=== PATIENT | male | born 1980 | race Caucasian/White ===

== ENCOUNTER 2019-12-07 07:55 | Day surgery (SDC) | payer OTHER, SELFPAY ==
[2019-10-07 14:07] VITALS: BMI 27.2
[2019-12-07] VITALS (8 sets, daily range): BP systolic 96–119; BP diastolic 61–79; PULSE 58–66; RESP 16–18; TEMP 36.3–36.4; O2SAT 97–99; BMI 29.8
--- NOTE | 2019-12-07 | GASB_PTH ---
PATIENT: ANAND GREGORY LOC: EN U#:[id number] AGE/SX: 39/M ROOM: RE12/07/[address]: Dr. Finesse Kramer MD : 1980 BED: DIS: 12/07/2019 SPEC #: [id number] RECD: 12/07/19 13:04 STATUS: AURELIA ASYA #: [id number] PARMJIT: 12/07/19 00:[address]: Finesse Kramer DEPT: SURGICAL PATHOLOGY RECD BY: Felipe Valdez ENTERED: 12/08/19 10:12 SP TYPE: Gastric Bx OTHR DR: Dr. Jessica Lozano, Tissues: Gastric mucous membrane Procedures: Surgery Specimen Level IV HEADER OPERATION: [place] PRE-OP DIAGNOSIS: Dysphagia TISSUE SUBMITTED: Antrum biopsy for histo and H. pylori MICROSCOPIC DIAGNOSIS Antrum biopsy: A fragment of gastric mucosa with minimal chronic inflammation. See comment. SJ:kimberly 12/09/19 COMMENT The results of immunohistochemistry for Helicobacter pylori will be reported separately ([id number]). MICROSCOPIC DESCRIPTION Slides are reviewed. GROSS DESCRIPTION Received in fixative is one container labeled with the patient's name and designated antrum biopsy. The specimen consists of one irregular fragment of light foreman soft tissue that measures 0.7 x 0.2 x 0.1 cm. The specimen is totally submitted in one cassette. / SJ:kimberly 12/08/19 TC:3 CPT: 62402
[2019-12-07] MEDS: Lactated Ringers 1,000 ML 100 ML IV (08:20)
--- NOTE | 2019-12-07 08:28 | PCM.HP.BLA ---
History and Physical Date of Admission: 12/07/19 [facility] [address] [place], [place] [address] MR#: [id number] Acct: [id number] Name: ANAND GREGORY Rep #: [id number] : 1980 Provider: Finesse Kramer MD Age/Sex: 39/M Location: [facility] Status: Signed Intake Vital Signs 10/07/19 Height 6 ft 2 in 10/07/19 Weight: 212 lb 10/07/19 BMI 27.2 10/07/19 BP 125/80 H 10/07/19 Blood Pressure Location Rt brachial 10/07/19 Position Sitting 10/07/19 Respiration 18 10/07/19 Pulse 79 10/07/19 Pulse Source Monitor 10/07/19 Temp 98.9 F 10/07/19 Temp Source Oral 10/07/19 Pulse Oximetry (%) 97 10/07/19 Oxygen Delivery Method room air Intake Visit Reasons: Consult EGD Chief Complaint: dysphagia 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 Finesse Kramer MD) Smoking Status: Never smoker alcohol intake: current substance use type: does not use HPI HPI HPI: ANAND GREGORY, is a 39 M who presents to the office today for Evaluation for endoscopy. Patient has a longstanding history of dysphasia and reflux. Approximately 7 to 8 years ago he underwent a barium swallow which showed esophagitis. He has been having problems with dysphasia and things getting stuck in his upper esophagus for about 8 years. He has had a history of EGD with dilatation with minimal effects. He will occasionally have waterbrash symptoms but not very often. ROS General General: No weight change, appetite, fatigue, colon cancer, breast cancer or weakness HEENT HEENT: Yes difficulty swallowing; no eye injury, eye surgery, swollen glands or hoarseness Endo Endocrine: No thyroid disease, diabetes mellitus, thyroid cancer, Hair loss, heat intolerance or cold intolerance Skin Skin: No rash or changing moles Breast Breast: No left breast lump, right breast lump, nipple discharge, breast pain, abnormal mammogram, abnormal US or breast enlargement Musc Musculoskeletal: No back problems, arthritis, rheumatoid arthritis, gout or joint pain Cardio Cardiovascular: No murmur, pacemaker, heart disease, atrial fibrillation, high blood pressure, heart attack, heart stent, palpitations, shortness of breat with exertion or chest pain Psych Psychiatric: No depression, anxiety or hearing voices Resp Respiratory: No shortness of breath, No sleep apnea, No cough, No COPD, No asthma, No emphysema, No wheezing Gastro Gastrointestinal: No abdominal pain, No nausea or vomiting, No diarrhea, No constipation, No blood in stool, No acid reflux, No hemorrhoids, No ulcers, No gallbladder problem, No black,tarry stools Teodoro Hematologic: No blood thinners, No blood disorders, No bleeding, No anemia, No blood clots Neuro Neurologic: No system reviewed and no additional complaints, except as docu, No as per HPI, No abnormal walking, No abnormal hearing, No abnormal movements, No abnormal speech, No behavioral changes, No burning sensations, No confusion, No seizure-like activity, No unsteadiness, No dizziness, No localized weakness, No frequent falls, No headache(s), No lack of coordination, No loss of vision, No memory loss, No numbness, No other visual disturbances, No radiating pain, No restless legs, No sensory deficit, No fainting, No tingling, No tremor(s), No weakness, No other Exam Const General: no acute distress, well developed, well hydrated Orientation: oriented to person, oriented to place, oriented to time [facility] Head: normocephalic, atraumatic Ears: external ears normal Mouth: moist mucous membranes Eyes Sclera: sclerae normal Pupils: normal by confrontation Neck Neck: no lymphadenopathy noted Neck mass: No Thyroid: thyroid normal, symmetrical Chest Chest palpation & inspection: normal inspection of the chest Breast Palpation: No nipple discharge Resp Effort & Inspection: normal respiratory effort Auscultation: clear to auscultation bilaterally Percussion: percussion normal Cardio Rate: regular rate Rhythm: regular rhythm Heart Sounds: no murmurs GI Palpation: soft, no hepatosplenomegaly, no masses, nontender Rectal Exam: other Other: Rectal exam deferred. Extrem General: normal to inspection, no clubbing, cyanosis or edema Assessment & Plan Problems 1. Pharyngoesophageal dysphagia R13.14 Plan I have discussed the above with the patient. I have offered the patient esophagogastroduodenoscopy With possible dilatation for evaluation. I have explained the risks/benefits of the procedure and described the procedure. I have discussed the risks with the patient, including but not limited to: infection, bleeding, perforation of the GI tract requiring emergency surgery, inability to complete the procedure, injury to any internal organs, complications of anesthesia, etc. - the patient understands and agrees to proceed. I have answered all the patient's questions to the patient's satisfaction and the patient has no further questions. The patient has been given instructions for the colon cleansing preparation. Orders Orders: EGD 10/07/19 Coding Level of Care Code Off vis,new,level 3 Diagnoses Pharyngoesophageal dysphagia R13.14 ??Dysphagia type: pharyngoesophageal phase <Electronically signed by Finesse Kramer MD> Date Finesse Kramer MD I have re-examined the patient. There are no clinical changes since date of exam.
--- NOTE | 2019-12-07 08:45 | IMM_PTH ---
PATIENT: ANAND GREGORY LOC: EN U#:[id number] AGE/SX: 39/M ROOM: RE12/07/[address]: Dr. Finesse Kramer MD : 1980 BED: DIS: 12/07/2019 SPEC #: [id number] RECD: 12/08/19 10:23 STATUS: AURELIA REQ #: [id number] PARMJIT: 12/07/19 08:[address]: Finesse Kramer DEPT: IMMUNOHISTOCHEMISTRY RECD BY: Joanne Montero ENTERED: 12/08/19 10:25 SP TYPE: IMMUNO OTHR DR: Dr. Jessica Lozano DO Tissues: Stomach, NOS Procedures: H Pylori (initial) PHYSICIAN & INSTITUTION [place] [id number] SPECIMEN INFORMATION: Tissue Source: Antrum biopsy Clinical Info: Dysphagia Specimen Number: [id number] CPT code: 10177 METHODOLOGY: Deparaffinized sections of prefer/formalin-fixed tissue or PAP/DQ stained slides are incubated with monoclonal/polyclonal antibodies/oligonucleotide probes. Localization is made via biotin free immunoperoxidase method. Appropriate controls are performed and reacted as expected. Results on target cell population are indicated in the following table: RESULTS: ANTIBODY / CLONE RESULT H Pylori (polyclonal) negative These tests were developed and their performance characteristics determined by [facility]. They may not have been cleared or approved by the U.S. Food and Drug Administration. The FDA has determined that such clearance or approval is not necessary. INTERPRETATION: Antrum biopsy: Negative for Helicobacter pylori organisms. NADIA:kimberly 12/09/19
--- NOTE | 2019-12-07 09:03 | OP.CCLET_ITS ---
12/07/2019 Jessica Lozano Re : Upper GI endoscopy procedure for Eleuterio Kay Dear Blake This procedure was performed on Saturday, December 07, 2019. My impressions and recommendations are as follows: Impressions : - Normal esophagus. - Z-line regular, 44 cm from the incisors. No specimens collected. - Normal stomach. Biopsied. - Normal examined duodenum. No specimens collected. Recommendations : - Discharge patient to home. - Resume previous diet. - Continue present medications. - Await pathology results. - Repeat upper endoscopy (date not yet determined) for surveillance. - Return to my office in 1 week. My findings are described in the full procedure note, which is enclosed. If I can be of further assistance, please feel free to contact me at Doctor phone number(s): , Fax: [phone], Work: . Sincerely, MD Finesse Lees MD 12/07/2019 9:02:38 AM This report has been signed electronically.
--- NOTE | 2019-12-07 09:03 | OP.EGD_ITS ---
Patient Name: Eleuterio Kay Procedure Date: 12/07/2019 8:42 AM Date of : 1980 Age: 39 Procedure: Upper GI endoscopy Indications: Esophageal dysphagia Providers: Finesse Kramer MD Referring MD: Finesse Kramer MD Medicines: See the Anesthesia note for documentation of the administered medications Patient Profile: This is a 39 year old male. Refer to note in patient chart for documentation of history and physical. Complications: No immediate complications. Procedure: Pre-Anesthesia Assessment: - Prior to the procedure, a History and Physical was performed, and patient medications and allergies were reviewed. The patient's tolerance of previous anesthesia was also reviewed. The risks and benefits of the procedure and the sedation options and risks were discussed with the patient. All questions were answered, and informed consent was obtained. Prior Anticoagulants: The patient has taken no previous anticoagulant or antiplatelet agents. ASA Grade Assessment: II - A patient with mild systemic disease. After reviewing the risks and benefits, the patient was deemed in satisfactory condition to undergo the procedure. After obtaining informed consent, the endoscope was passed under direct vision. Throughout the procedure, the patient's blood pressure, pulse, and oxygen saturations were monitored continuously. The gastroscope was introduced through the mouth, and advanced to the second part of duodenum. The upper GI endoscopy was accomplished without difficulty. The patient tolerated the procedure well. Scope In: 8:54:43 AM Scope Out: 8:57:28 AM Total Procedure Duration Time 0 hours 2 minutes 45 seconds Findings: The examined esophagus was normal. There was no abnormality seen in the upper esophagus or mid esophagus or distal esophagus. The mucosa all look normal. There was no pressure on the esophagus. The Z-line was regular and was found 44 cm from the incisors. No biopsies or other specimens were collected for this exam. The entire examined stomach was normal. Biopsies were taken with a cold forceps for Helicobacter pylori testing. The examined duodenum was normal. No biopsies or other specimens were collected for this exam. Impression: - Normal esophagus. - Z-line regular, 44 cm from the incisors. No specimens collected. - Normal stomach. Biopsied. - Normal examined duodenum. No specimens collected. Recommendation: - Discharge patient to home. - Resume previous diet. - Continue present medications. - Await pathology results. - Repeat upper endoscopy (date not yet determined) for surveillance. - Return to my office in 1 week. Procedure Code(s): --- Professional --- 38617, Esophagogastroduodenoscopy, flexible, transoral; with biopsy, single or multiple Diagnosis Code(s): --- Professional --- R13.14, Dysphagia, pharyngoesophageal phase CPT copyright 2017 [employer]. All rights reserved. The codes documented in this report are preliminary and upon product demonstrator review may be revised to meet current compliance requirements. MD Finesse Lees MD 12/07/2019 9:02:38 AM This report has been signed electronically. Number of Addenda: 0 Note Initiated On: 12/07/2019 8:42 AM
== END 2019-12-07 09:57 | disposition home or self-care (01) ==
LOC: EN 07:56 → AC 07:57
PROVIDERS: Referring Provider Surgery; Visit Provider Surgery
PROC: 0DJ08ZZ Inspection of Upper Intestinal Tract, Via Natural or Artificial Opening Endoscopic (ICD-10-PCS; CPT 43235; principal; 2019-12-07 08:40)
DX: K21.9 Gastro-esophageal reflux disease without esophagitis (principal)
CPT/HCPCS: 43239; 88305; 88342; J7120; J2405

== ENCOUNTER → 2020-08-15 12:22 | Outpatient (CLI) | payer OTHER, SELFPAY ==
[2020-08-03 15:41] VITALS: BMI 30.1
[2020-08-15 15:14] LABS: Absolute Lymphocyte Count 1.51 X10^3/uL (0.83-4.51); Absolute Neutrophil Count 2.5 X10^3/uL (2.0-7.7); Basophil# 0.04 X10^3/uL; Basophil% 0.9 % (0-1); Eosinophil# 0.06 X10^3/uL; Eosinophils% 1.3 % (0-5); Hematocrit 43.9 % (40-54); Hemoglobin 15.8 g/dL (13.0-16.5); Lymphocyte # 1.51 X10^3/ul (4.0); Lymphocyte % 33.9 % (19-41); Mean Corpuscular Hgb 31.4 pg (27.0-32.0); Mean Corpuscular Volume 87.3 fL (80-94); Monocyte# 0.31 X10^3/uL; NRBC Flagged by Analyzer 0 % (0-5); Neutrophil # 2.52 X10^3/uL (2.7-7.7); Neutrophil % 56.7 % (47-70); Platelet Count 313 K/mm3 (150-450); RBC Distribution Width CV 11.2 % (11.6-14.6); RBC Distribution Width SD 35.8 fl (35.1-43.9); Red Blood Count 5.03 M/mm3 (4.6-6.2); White Blood Count 4.5 K/mm3 (4.4-11.0)
[2020-08-15 15:31] LABS: ALB/GLOB Ratio 1.1 RATIO (0.9-2.4); AST(SGOT) 23 U/L (15-37); Alanine Aminotransfer ALT/SGPT 49 U/L (16-61); Albumin, Serum 4.3 g/dL (3.2-5.0); Alkaline Phosphatase 70 U/L (45-117); Anion Gap 6 (5-15); BUN 12 mg/dL (7-18); BUN/Creat Ratio 11.9 RATIO (10-20); Calcium,Total 9.4 mg/dL (8.5-10.1); Chloride 105 mmol/L (98-107); Cholesterol 215 mg/dL (200); Creatinine, Serum 1.01 mg/dL (0.70-1.30); EST Glomerular Filtration Rate 87 mL/min (>60); Est Glom Filt Rate - Afr Amer 105 mL/min (>60); Globulin 3.9 g/dL (2.2-4.2); Glucose 84 mg/dL (74-106); High Density Lipoprotein 60 mg/dL; PSA,Total - Annual Screen 0.59 ng/mL (0.00-4.00); Protein, Total 8.2 g/dL (6.4-8.2); Sodium Level 138 mmol/L (136-145); Triglycerides 97 mg/dL; Very Low Density Lipoprotein 19 mg/dL (5-40)
== END ==
PROVIDERS: PCP Internal Medicine; Referring Provider Internal Medicine; Visit Provider Internal Medicine
DX: Z12.5 Encounter for screening for malignant neoplasm of prostate (principal); Z13.1 Encounter for screening for diabetes mellitus; Z13.220 Encounter for screening for lipoid disorders
CPT/HCPCS: 36415; 80053; 80061; 84153; 85025; G0103

== ENCOUNTER → 2020-08-17 | Outpatient (CLI) | payer OTHER, SELFPAY ==
[2020-08-03 15:41] VITALS: BMI 30.1
== END | disposition home or self-care (01) ==
LOC: LABSPEC 16:47
PROVIDERS: PCP Internal Medicine; Visit Provider Surgery
DX: R14.0 Abdominal distension (gaseous) (principal); R19.7 Diarrhea, unspecified
CPT/HCPCS: 82274; 83630; 87177; 87209; 87506

== ENCOUNTER 2020-08-24 08:46 | Day surgery (SDC) | payer OTHER, SELFPAY ==
[2020-08-03 15:41] VITALS: BMI 30.1
[2020-08-24 09:09] VITALS: BP 118/77; PULSE 73; RESP 16; TEMP 36.2; O2SAT 99; BMI 30.4
--- NOTE | 2020-08-24 09:12 | HP.PCM_ITS ---
History and Physical Date of Admission: 08/24/20 [facility] [address] [place] [address] OFFICE VISIT Date of Service: 08/15/20 MR#: [id number] Acct: [id number] Patient: ANAND GREGORY Rep #: [id number] : 1980 Provider: Dr. 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 Finesse Kramer MD) Smoking Status: Never smoker alcohol intake: current substance use type: does not use HPI HPI Chief Complaint: c-scope/stomach issues Details: Patient was informed that this visit will be billed to patient. This visit was conducted during COVID-19 pandemic. ANAND GREGORY, is a 40 M who presents For a telephone visit. I have seen him in the past for reflux symptoms. He did have EGD on a couple of occasions in the past. Most recent EGD, completed at [facility], was largely unremarkable. His H. pylori testing was negative. Recently, he developed a GI illness that included a couple of days of more diarrheal symptoms, which have mostly resolved. This developed just a few days after returning from a trip to [place] little over a month ago. Admittedly, had quite a bit of alcohol during the entire time he was there. They were in a resort-like environment. He was pretty careful about drinking bottled water except for a single occasion, when he inadvertently drank tap water. His spouse was not ill. He developed symptoms upon returning as above. Currently, he states while bowel movements have improved, he still has a sense of bloating at times, intermittent loose stool but not frankly diarrhea. Has not mentioned foul-smelling. He notes no blood in the stool, black stool. He really had no nausea symptoms or vomiting associated with this, and there were no fever or chills associated nor significant abdominal cramping. He did recall some mild cramping right at the onset, that rapidly cleared after he had the first bowel movement. Recently, he started on a 5-day course of Cipro 500 mg oral twice daily. I believe he has a couple of more days left he states. Not sure yet if this has improved things. Today he has not had any stool studies. ROS Const Constitutional: No body ache, chills, excessive sweating, fatigue, fever(s), headache(s), snoring, weakness, weight change, sleep problems, change in appetite or other Eyes Eyes: No blurry vision, change in vision, eye pain, light sensitivity or other ENT ENT: No abnormal hearing, ear pain, tinnitus, nasal congestion, headache(s), neck pain, sore throat or other Resp Respiratory: No cough, shortness of breath, snoring, wheezing or other Cardio Cardiology: No chest pain at rest, chest pain with exertion, excessive sweating, shortness of breath, lightheadedness, orthopnea, palpitations or other Gastro GI: Positive for abdominal pain, belching, bloating and diarrhea Genitourinary Male: No burning urination, painful urination, urinary incontinence, urinary frequency, urinary urgency, testicle pain or other Musc Musculoskeletal: No abnormal walking, joint pain, back pain, limited range of motion, neck pain, numbness, tingling or other Skin Skin: No dry skin, redness, lesions, itching, rash, wounds or other Breast Breast: No other Neuro Neurology: No abnormal walking, abnormal hearing, abnormal speech, dizziness, weakness, headache(s), memory loss, numbness, tingling or other Psych Psychiatric: No anxiety, No change in appetite, No depression, No memory loss, No Thoughts of harming yourself/Others, No other Endo Endocrine: No cold intolerance, excessive sweating, fatigue, flushing, heat intolerance, increased thirst/drinking, increased hunger or other Aller/Imm Allergy/Immunologic: No itchy eyes, seasonal allergy symptoms, hives, wheezing or other Teodoro/Lymp Hematologic/Lymphatic: No easy bleeding, easy bruising, enlarged lymph nodes or other Exam Details: Details:: Abdomen is soft and nontender. Quality Reporting Tobacco Screening ([facility] 138) Smoking Status: Never smoker Assessment & Plan Problems 1. Abdominal bloating R14.0 2. Diarrhea, unspecified type R19.7 Plan I have discussed the above with the patient. I have offered the patient colonoscopy for evaluation. I have explained the risks/benefits of the procedure and described the procedure. I have discussed the risks with the patient, including but not limited to: infection, bleeding, perforation of the GI tract requiring emergency surgery, inability to complete the procedure, injury to any internal organs, complications of anesthesia, etc. - the patient understands and agrees t o proceed. I have answered all the patient's questions to the patient's satisfaction and the patient has no further questions. The patient has been given instructions for the colon cleansing preparation. We will obtain stool studies on him. We will be doing random colon biopsies. Coding Level of Care Code Level 1 Telephone Diagnoses Abdominal bloating R14.0 Diarrhea, unspecified type R19.7 ??Diarrhea type: unspecified type I have re-examined the patient. There are no clinical changes since date of exam.
[2020-08-24] MEDS: Lactated Ringers 1,000 ML 100 ML IV (09:21)
[2020-08-24] MEDS: Glucagon 1 MG/ML Syringe (09:41)
--- NOTE | 2020-08-24 09:45 | COLBX_PTH ---
PATIENT: ANAND GREGORY LOC: EN U#:[id number] AGE/SX: 40/M ROOM: RE08/24/[address]: Dr. Finesse Kramer MD : 1980 BED: DIS: 08/24/2020 SPEC #: [id number] RECD: 08/24/20 10:53 STATUS: AURELIA SKY #: [id number] PARMJIT: 08/24/20 09:[address]: Finesse Kramer DEPT: SURGICAL PATHOLOGY RECD BY: Mary Adrian ENTERED: 08/24/20 12:56 SP TYPE: COLON BX OTHR DR: Dr. Arelis Sweet MD Tissues: A - Small intestine biopsy B - COLON BIOPSY Procedures: Surgery Specimen Level IV HEADER OPERATION: Colonoscopy ([facility]) PRE-OP DIAGNOSIS: Abdominal bloating; diarrhea TISSUE SUBMITTED: A - Biopsy of small intestine, B - Random colon biopsies MICROSCOPIC DIAGNOSIS A. Small intestine, biopsy: No pathologic change. B. Colon, random biopsy: No pathologic change. AM:kimberly 08/25/2020 MICROSCOPIC DESCRIPTION Slides are reviewed. GROSS DESCRIPTION A - Received in fixative is one container labeled with the patient's name and designated biopsy of small intestine. The specimen consists of one irregular fragment of light foreman soft tissue that measures 0.5 x 0.5 x 0.1 cm. The specimen is totally submitted in one cassette. B - Received in fixative is one container labeled with the patient's name and designated random colon biopsy. The specimen consists of multiple irregular fragments of light foreman soft tissue that in aggregate measure 2.5 x 1 x 0.1 cm. The specimen is totally submitted in one cassette. / AM:kimberly 08/24/20 TC:5 CPT: 87616 x2
[2020-08-24 09:55] VITALS: BP 114/82; BP 118/77; PULSE 65; RESP 16; TEMP 36.1; O2SAT 95
[2020-08-24 10:00] VITALS: BP 114/71; BP 118/77; PULSE 70; RESP 16; O2SAT 95
[2020-08-24 10:05] VITALS: BP 117/75; BP 118/77; PULSE 66; RESP 16; O2SAT 98
[2020-08-24 10:10] VITALS: BP 116/70; BP 118/77; PULSE 65; RESP 16; TEMP 36.3; O2SAT 99
[2020-08-24 10:33] VITALS: BP 118/77
--- NOTE | 2020-08-24 13:51 | OP.CCLET_ITS ---
08/24/2020 Arelis Sweet [facility] [address] [place] [address] Re : Colonoscopy procedure for Eleuterio Kay Dear Dr. Sweet This procedure was performed on Monday, August 24, 2020. My impressions and recommendations are as follows: Impressions : - Non-bleeding internal hemorrhoids. - The entire examined colon is normal. Biopsied. - The examined portion of the ileum was normal. Biopsied. - The examination was otherwise normal. Recommendations : - Discharge patient to home. - Resume previous diet. - Continue present medications. - Await pathology results. - Repeat colonoscopy at appointment to be scheduled for screening purposes. - Telephone my office for pathology results in 1 week. My findings are described in the full procedure note, which is enclosed. If I can be of further assistance, please feel free to contact me at Doctor phone number(s): , Fax: [phone], Work: . Sincerely, MD Finesse Lees MD 08/24/2020 9:57:49 AM This report has been signed electronically.
--- NOTE | 2020-08-24 13:51 | OP.COLON_ITS ---
Patient Name: Eleuterio Kay Procedure Date: 08/24/2020 9:22 AM Date of : 1980 Age: 40 Procedure: Colonoscopy Indications: Clinically significant diarrhea of unexplained origin, Incidental abdominal distress noted Providers: Finesse Kramer MD Referring MD: Arelis Sweet Medicines: See the Anesthesia note for documentation of the administered medications Patient Profile: This is a 40 year old male. Refer to note in patient chart for documentation of history and physical. Last Colonoscopy: none. The patient's first colonoscopy is today. Complications: No immediate complications. Procedure: Pre-Anesthesia Assessment: - Prior to the procedure, a History and Physical was performed, and patient medications and allergies were reviewed. The patient's tolerance of previous anesthesia was also reviewed. The risks and benefits of the procedure and the sedation options and risks were discussed with the patient. All questions were answered, and informed consent was obtained. Prior Anticoagulants: The patient has taken no previous anticoagulant or antiplatelet agents. ASA Grade Assessment: II - A patient with mild systemic disease. After reviewing the risks and benefits, the patient was deemed in satisfactory condition to undergo the procedure. After I obtained informed consent, the scope was passed under direct vision. Throughout the procedure, the patient's blood pressure, pulse, and oxygen saturations were monitored continuously. The adult colonoscope was introduced through the anus and advanced to 3 cm into the ileum. The colonoscopy was performed without difficulty. The patient tolerated the procedure well. The quality of the bowel preparation was good. Scope In: 9:36:07 AM Scope Withdrawal Time 0 hours 6 minutes 34 seconds Scope Out: 9:51:20 AM Total Procedure Duration Time 0 hours 15 minutes 13 seconds Findings: Non-bleeding internal hemorrhoids were found during retroflexion. The hemorrhoids were mild and small. The colon (entire examined portion) appeared normal. Biopsies for histology were taken with a cold forceps from the entire colon for evaluation of microscopic colitis. The terminal ileum appeared normal. Biopsies were taken with a cold forceps for histology. The exam was otherwise without abnormality. Impression: - Non-bleeding internal hemorrhoids. - The entire examined colon is normal. Biopsied. - The examined portion of the ileum was normal. Biopsied. - The examination was otherwise normal. Recommendation: - Discharge patient to home. - Resume previous diet. - Continue present medications. - Await pathology results. - Repeat colonoscopy at appointment to be scheduled for screening purposes. - Telephone my office for pathology results in 1 week. Procedure Code(s): --- Professional --- 10243, Colonoscopy, flexible; with biopsy, single or multiple Diagnosis Code(s): --- Professional --- K64.8, Other hemorrhoids R19.7, Diarrhea, unspecified CPT copyright 2017 [employer]. All rights reserved. The codes documented in this report are preliminary and upon patcher helper review may be revised to meet current compliance requirements. MD Finesse Lees MD 08/24/2020 9:57:49 AM This report has been signed electronically. Number of Addenda: 0 Note Initiated On: 08/24/2020 9:22 AM
== END 2020-08-24 10:45 | disposition home or self-care (01) ==
LOC: EN 08:47 → AC 08:48
PROVIDERS: PCP Internal Medicine; Referring Provider Internal Medicine; Visit Provider Surgery
PROC: 0DJD8ZZ Inspection of Lower Intestinal Tract, Via Natural or Artificial Opening Endoscopic (ICD-10-PCS; CPT 45378; principal; 2020-08-24 09:40)
DX: K64.8 Other hemorrhoids (principal); K21.9 Gastro-esophageal reflux disease without esophagitis; Z20.822 Contact with and (suspected) exposure to COVID-19
CPT/HCPCS: 45380; 87426; 88305; C9803; J7120; J1610; J2405

== ENCOUNTER 2021-09-12 13:33 | Outpatient (CLI) | payer OTHER, SELFPAY ==
[2021-09-12 14:34] LABS: Erythrocyte Sedimentation Rate 4 mm/hr (0-20)
[2021-09-12 14:53] LABS: BUN 15 mg/dL (7-18); Creatinine, Serum 0.96 mg/dL (0.70-1.30); Glucose 108 mg/dL (74-106)
[2021-09-12 14:54] LABS: ALB/GLOB Ratio 1.2 RATIO (0.9-2.4); AST(SGOT) 49 U/L (15-37); Alanine Aminotransfer ALT/SGPT 67 U/L (16-61); Albumin, Serum 4.2 g/dL (3.2-5.0); Alkaline Phosphatase 66 U/L (45-117); Anion Gap 8 (5-15); BUN/Creat Ratio 15.7 RATIO (10-20); CRP < 2.90 mg/L (0.0-3.0); Calcium,Total 9.4 mg/dL (8.5-10.1); Chloride 104 mmol/L (98-107); EST Glomerular Filtration Rate 92 mL/min (>60); Est Glom Filt Rate - Afr Amer 112 mL/min (>60); Globulin 3.5 g/dL (2.2-4.2); LDH 215 U/L (87-241); Potassium 3.7 mmol/L (3.5-5.1); Protein, Total 7.7 g/dL (6.4-8.2); Sodium Level 137 mmol/L (136-145)
[2021-09-14 13:08] LABS: Anti-Centromere B Ab <0.2 AI (0.0-0.9); Anti-Chromatin <0.2 AI (0.0-0.9); Anti-Jo <0.2 AI (0.0-0.9); Anti-Scleroderma-70 AB <0.2 AI (0.0-0.9); RNP Ab 0.3 AI (0.0-0.9); SJOGREN'S Anti-SS-A test < 0.2 AI (0.0-0.9); SJOGREN'S Anti-SS-B test < 0.2 AI (0.0-0.9); Smith Ab <0.2 AI (0.0-0.9)
[2021-09-14 16:51] LABS: Anti-dsDNA Ab 3 IU/mL (0-9)
[2021-09-18 00:06] LABS: Cytoplasmic Ab (C-ANCA) <1:20 titer (Neg:<1:20); Endomysial Antibody IgA Negative (Negative); Immunoglobulin A 193 mg/dL (90-386); Immunoglobulin E 56 IU/mL (6-495); Immunoglobulin G 1054 mg/dL (603-1613)
[2021-09-18 08:11] LABS: Immunoglobulin M 72 mg/dL (20-172); Perinuclear Ab (P-ANCA) <1:20 titer (Neg:<1:20); t-Transglutaminase IgA <2 U/mL (0-3)
== END 2021-09-12 23:59 | disposition home or self-care (01) ==
PROVIDERS: PCP Internal Medicine; Visit Provider Internal Medicine Gastroenterology
DX: R14.0 Abdominal distension (gaseous) (principal)
CPT/HCPCS: 36415; 80053; 82784; 82785; 83516; 83615; 85652; 86140; 86225; 86235; 86255; 86256

== ENCOUNTER 2021-09-20 07:21 | Outpatient (CLI) | payer OTHER, SELFPAY ==
--- NOTE | 2021-09-20 07:23 | US_ITS ---
EXAM: US ABDOMEN LIMITED, RIGHT UPPER QUADRANT CLINICAL INDICATION: Elevated liver enzymes TECHNIQUE: Real-time ultrasound of the right upper quadrant with image documentation. This report was created using [employer] report generation technology. COMPARISON: None. FINDINGS: LIVER: Borderline hepatomegaly measuring 17.3 cm. No hepatic masses. There is normal echotexture. No intrahepatic biliary ductal dilation. GALLBLADDER: Unremarkable. No shadowing gallstone. No gallbladder wall thickening is demonstrated. No pericholecystic fluid. Negative sonographic Damon''s sign. COMMON BILE DUCT: Unremarkable as visualized. The proximal common bile duct is within normal limits for the patient''s age. PANCREAS: Unremarkable as visualized. No focal abnormality is demonstrated in the pancreas. No pancreatic ductal dilatation. RIGHT KIDNEY: Unremarkable. There is no hydronephrosis. No shadowing calculus. No focal lesion or perinephric collection is demonstrated. US/Liver IMPRESSION: Borderline hepatomegaly. No hepatic masses. Electronically Signed: Renny Zamora MD (Brooks) at 8:21 EST ,
== END 2021-09-20 23:59 | disposition home or self-care (01) ==
PROVIDERS: PCP Internal Medicine; Referring Provider Internal Medicine Gastroenterology; Visit Provider Internal Medicine Gastroenterology
DX: R74.01 Elevation of levels of liver transaminase levels (principal)
CPT/HCPCS: 76705

== ENCOUNTER 2022-05-01 10:23 | Emergency (ER) | payer OTHER, SELFPAY ==
[2022-05-01 10:23] VITALS: BP 129/88; PULSE 84; RESP 16; TEMP 36.4; O2SAT 98; BMI 31.1
--- NOTE | 2022-05-01 11:03 | EX.ED.UPPERE ---
HPI History of Present Illness Chief Complaint: Occup Expose Informant: patient Narrative Narrative: Needlestick injury while in surgery. Works as a physician addictions counselor assistant. [id number]. Stick to the back of his left hand. Tetanus unknown. He received his hepatitis vaccinations. Sources being checked with blood work. Bleeding stopped. No other injuries. Prior similar symptoms: Yes [facility] Medical History Bloating Dysphagia Home Medications famotidine 20 mg tablet 40 mg PO QHS 08/23/20 [History Last Taken Unknown] Allergy/AdvReac Type Severity Reaction Status Date / Time theophylline [From [facility]] Allergy Severe Anaphylaxis Verified 05/01/22 10:29 Family History Father Cancer prostate and bladder Surgical History History of excision of pilonidal cyst history ORIF hand history right ankle surgery Social History Smoking Status: Never smoker alcohol intake: current substance use type: does not use ROS ROS ED Constitutional Constitutional ED: Denies fever(s) Cardiovascular Cardiovascular: Denies chest pain Respiratory/Chest Respiratory/Chest: Denies cough Musculoskeletal Musculoskeletal: Denies extremity pain Integumentary Reports wounds and other Details: Needlestick left hand. Neurologic Neurologic: Denies headache(s) EXAM Physical Exam Const Vital Signs: 05/01/22 10:23 Temperature 97.6 F L Temperature Source Oral Pulse Rate 84 Respiratory Rate 16 Blood Pressure 129/88 H Blood Pressure Mean 101 Pulse Ox 98 Oxygen Delivery Method Room Air Positive well nourished and well developed General Appearance ED: well developed and NAD HEENT Reports moist mucous membranes normocephalic and atraumatic Eyes EOMs intact bilaterally General Eye ED: Yes normal appearance of both eyes Neck no lymphadenopathy and supple General: Negative for tenderness Chest Wall Chest: Negative for tenderness Resp normal respiratory effort and normal air movement Effort and Inspection: symmetric chest movement; Negative for respiratory distress Cardio regular rate, regular rhythm and no murmurs Peripheral Pulses: pulses 2+ throughout GI normal to inspection, nondistended, normoactive bowel sounds and non-tender Palpation: Negative for guarding or rebound tenderness present Back/Spine no CVA tenderness and no thoracic nor lumbar tenderness Extremity normal to inspection General Extremety ED: Negative for edema or tenderness General Extremity: Negative for edema Neuro oriented x3 and no sensory deficits noted Sensorium / Orientation: awake and alert Skin no rashes or lesions noted Skin Narrative: Left hand: Dorsal aspect first webspace, injury location no puncture wounds appreciated. There is no active bleeding. MDM MDM MDM Narrative Medical decision making narrative: Needlestick protocol lab work his tetanus is updated. Declines HIV prophylaxis. He will follow-up with occupational health. Discharge Plan Triage Chief Complaint: Occup Expose ED Provider: Manolo Crocker Dx/Rx/DC Orders Clinical Impression: Needlestick injury accident, Tetanus Instructions: ED NEEDLE STICK Health Care Worker Prescriptions: No Action famotidine 20 MG tablet 40 mg PO QHS Primary Care Provider: Arelis Sweet Referrals: Arelis Sweet MD [Primary Care Provider] - Activity Restrictions/Additional Instructions: Follow-up with occupational health. Disposition Disposition: Home, Self Care Discharge Date/Time: 05/01/22 11:11
[2022-05-01] MEDS: Diphth,Pertuss(Acell),Tet Vac 0.5 ML Vial IM (11:05)
[2022-05-01 11:10] VITALS: BP 134/77; PULSE 76; RESP 15; O2SAT 98
[2022-05-01 11:58] LABS: HIV - WCH Non-Reactive (Nonreactive); Hepatitis B Surface Antibody Reactive; Hepatitis B Surface Antigen Non-Reactive (Nonreactive); Hepatitis C Antibody Non-Reactive (Nonreactive)
== END 2022-05-01 11:11 | disposition home or self-care (01) ==
PROVIDERS: Emergency Provider Emergency Medicine; PCP Internal Medicine; Visit Provider Emergency Medicine
DX: L76.12 Accidental puncture and laceration of skin and subcutaneous tissue during other procedure (principal); Y92.234 Operating room of hospital as the place of occurrence of the external cause; Z77.21 Contact with and (suspected) exposure to potentially hazardous body fluids; Z23 Encounter for immunization
CPT/HCPCS: 86703; 86706; 86803; 87340; 90471; 90715; 99282

== ENCOUNTER → 2022-10-08 | Outpatient (CLI) | payer OTHER, SELFPAY ==
--- NOTE | 2022-10-08 09:32 | NM_ITS ---
CLINICAL: 42-year-old male with history of abdominal bloating. No available RADIONUCLIDE HEPATOBILIARY SCINTIGRAPHY COMPARISON: None available FINDINGS: Following the intravenous administration of 5.8 mCi of 99m Tc Mebrofenin, hepatobiliary images reveal: 1. Relatively prompt and homogeneous radiopharmaceutical concentration is noted by a normal sized liver. No parenchymal defects are identified. 2. Gallbladder activity is identified at 15 minutes post radiopharmaceutical administration. 3. Intestinal tract is not visualized during 60 minutes of pre-CCK imaging. Small bowel is observed following cholecystokinin administration. 4. Washout of the radiopharmaceutical by the hepatic parenchyma appears qualitatively normal. Cholecystokinin (0.02 ug/kg) was administered intravenously over a 30-minute period. The post CCK gallbladder ejection fraction calculated at 21 minutes following Cholecystokinin administration was noted to be 13.0 % (normal greater than 35%). NM/Hepatobilliary Img w/Pharm Int IMPRESSION: 1. ABNORMAL 99m Tc Mebrofenin hepatobiliary imaging examination with Cholecystokinin. A. A gallbladder ejection fraction calculated to be less than 35% following the administration of Cholecystokinin is consistent with the presence of functional hepatobiliary disease (gallbladder and/or sphincter of Oddi dyskinesia) and/or organic hepatobiliary disease (chronic acalculous cholecystitis and/or cystic duct syndrome) in patients with intermediate to high pretest probabilities of hepatobiliary illness. (Jacob Guan et al, Journal of Nuclear Medicine 32:1695, 1991). Electronically Signed: Jose Brown, at 20:59 EST ,
== END | disposition home or self-care (01) ==
LOC: NM 09:31
PROVIDERS: PCP Internal Medicine; Referring Provider Internal Medicine Gastroenterology; Visit Provider Internal Medicine Gastroenterology
DX: R14.0 Abdominal distension (gaseous) (principal); R74.01 Elevation of levels of liver transaminase levels
CPT/HCPCS: 78227; A9537; J2805

== ENCOUNTER → 2022-10-11 | Outpatient (CLI) | payer OTHER, SELFPAY ==
--- NOTE | 2022-10-11 11:50 | NM_ITS ---
CLINICAL: 42-year-old male with history of abdominal bloating. SEMI-SOLID PHASE 99m Tc SULFUR COLLOID GASTRIC EMPTYING STUDY COMPARISON: None available FINDINGS: The patient was administered 1.0 mCi of 99m Tc sulfur colloid mixed with oatmeal and consumed per os. Image acquisitions in the anterior-posterior projections were obtained for 60 minutes. There is prompt visualization of the stomach. There is no gastroesophageal reflux identified. The T ? raw data emptying was calculated to be 15.02 minutes, (Normal: 12-56 minutes). NM/Gastric Emptying Study IMPRESSION: 1. NORMAL 99m Tc sulfur colloid semi-solid phase (oatmeal) gastric emptying imaging examination. A. There is normal and preserved semi-solid phase gastric emptying compared to normal controls. (Sandip et al, J Nucl Med Tech 38: 186, 2010). Electronically Signed: Jose Brown, at 21:23 EST ,
== END | disposition home or self-care (01) ==
LOC: NM 11:49
PROVIDERS: PCP Internal Medicine; Visit Provider Internal Medicine Gastroenterology
DX: R14.0 Abdominal distension (gaseous) (principal); R74.01 Elevation of levels of liver transaminase levels
CPT/HCPCS: 78264; A9541

== ENCOUNTER → 2022-10-17 | Outpatient (CLI) | payer OTHER, SELFPAY ==
--- NOTE | 2022-10-17 07:57 | US_ITS ---
STUDY: ABDOMINAL ULTRASOUND - RIGHT UPPER QUADRANT REASON FOR VISIT: Male, 42 years old nausea and vomiting TECHNIQUE: Ultrasound evaluation of the right upper quadrant was performed with real-time and static fraser-scale imaging. TECHNICAL QUALITY: Limited. Examination limited by bowel gas. COMPARISON: None. FINDINGS: Liver: The liver measures 17.3 cm. There is normal echogenicity of the liver. The bile ducts are within normal limits. There is hepatic color flow. The direction of portal flow is hepatopetal. There is no demonstrated mass lesion. Gallbladder: Normal distended gallbladder. The gallbladder wall measures 2 mm. There is a negative sonographic Damon''s sign. There is no pericholecystic fluid. There are no gallstones. Common Bile Duct (C.B.D.): The common bile duct measures 4 mm. Pancreas: Visualized pancreas is sonographically normal Right Kidney: Normal size of the right kidney. The right kidney measures 11.3 x 6.8 x 4.6 cm. Normal renal cortex. The right cortex measures 1.4 cm. There is no demonstrated renal mass or cyst. There is no right hydronephrosis. US/Abdomen Limited IMPRESSION: No suspicious sonographic findings Electronically Signed: Ney Stanford MD at 10:06 EDT ,
== END | disposition home or self-care (01) ==
LOC: US 07:56
PROVIDERS: PCP Internal Medicine; Visit Provider Internal Medicine Gastroenterology
DX: Q44.1 Other congenital malformations of gallbladder (principal)
CPT/HCPCS: 76705

== ENCOUNTER → 2023-06-26 | Outpatient (CLI) | payer OTHER, SELFPAY ==
[2023-06-26 17:07] LABS: Absolute Lymphocyte Count 1.99 X10^3/uL (0.83-4.51); Absolute Neutrophil Count 5.2 X10^3/uL (2.0-7.7); Basophil# 0.05 X10^3/uL; Basophil% 0.6 % (0-1); Eosinophil# 0.08 X10^3/uL; Hematocrit 46.2 % (40-54); Hemoglobin 16.3 g/dL (13.0-16.5); Lymphocyte # 1.99 X10^3/ul (0.83-4.51); Mean Corp Hgb Conc 35.3 g/dL (32-36); Mean Corpuscular Hgb 31.3 pg (27.0-32.0); Mean Corpuscular Volume 88.8 fL (80-94); Mean Platelet Vol. 9.1 fl (6.2-12.0); Monocyte# 0.61 X10^3/uL; Monocyte% 7.7 % (0-10); NRBC Flagged by Analyzer 0 % (0-5); Neutrophil # 5.17 X10^3/uL (2.7-7.7); Neutrophil % 64.9 % (47-70); Platelet Count 369 K/mm3 (150-450); RBC Distribution Width CV 11.5 % (11.6-14.6); RBC Distribution Width SD 36.7 fl (35.1-43.9)
[2023-06-26 18:06] LABS: ALB/GLOB Ratio 1.1 RATIO (0.9-2.4); AST(SGOT) 24 U/L (15-37); Alanine Aminotransfer ALT/SGPT 79 U/L (16-61); Albumin, Serum 4.1 g/dL (3.2-5.0); Alkaline Phosphatase 74 U/L (45-117); Anion Gap 8 (5-15); BUN 15 mg/dL (7-18); BUN/Creat Ratio 15.9 RATIO (10-20); Chloride 101 mmol/L (98-107); Creatinine, Serum 0.94 mg/dL (0.70-1.30); EST Glomerular Filtration Rate 93 mL/min (>60); Est Glom Filt Rate - Afr Amer 112 mL/min (>60); Globulin 3.8 g/dL (2.2-4.2); Glucose 90 mg/dL (74-106); Potassium 3.9 mmol/L (3.5-5.1); Protein, Total 7.9 g/dL (6.4-8.2); Sodium Level 138 mmol/L (136-145)
== END | disposition home or self-care (01) ==
LOC: BIMLAB 15:59
PROVIDERS: PCP Internal Medicine; Referring Provider Family Medicine; Visit Provider Family Medicine
DX: R05.3 Chronic cough (principal)
CPT/HCPCS: 36415; 80053; 85025; 86769

== ENCOUNTER → 2023-08-09 | Outpatient (CLI) | payer OTHER, SELFPAY ==
--- NOTE | 2023-08-09 15:02 | VDLE_ITS ---
Reason For Study: Pain LLE Procedure LEFT This is a venous duplex using B-mode, color GSV is normal. flow and spectral Doppler. CFV is compressible, spontaneous, phasic, Exam performed in department. competent, and demonstrates normal A preliminary report was called and/or faxed augmentation. to Dr. Escobar. FV is compressible, spontaneous, phasic, competent and demonstrates normal augmentation. POP V is compressible, spontaneous, phasic, competent and demonstrates normal augmentation. T/P Trunk is compressible. PTV is compressible. LT PerV is compressible. VL/Venous Duplex US, Unilateral Interpretation Summary There is no evidence of left lower extremity deep vein thrombosis. Left great s aphenous vein appears patent and compressible segmentally. Ordering Physician: Bereket Escobar Referring Physician: Bereket Escobar Performed By: Maura Purcell, RDCS, RVT
== END | disposition home or self-care (01) ==
LOC: CVS 15:00
PROVIDERS: PCP Internal Medicine; Referring Provider Internal Medicine; Visit Provider Internal Medicine
DX: M79.662 Pain in left lower leg (principal)
CPT/HCPCS: 93971

== ENCOUNTER → 2024-03-26 | Outpatient (CLI) | payer OTHER, SELFPAY ==
[2024-03-26 12:59] LABS: Absolute Lymphocyte Count 1.83 X10^3/uL (0.83-4.51); Absolute Neutrophil Count 3.2 X10^3/uL (2.0-7.7); Basophil# 0.03 X10^3/uL; Basophil% 0.5 % (0-1); Eosinophils% 1.8 % (0-5); Hematocrit 46.4 % (40-54); Hemoglobin 16.4 g/dL (13.0-16.5); Lymphocyte # 1.83 X10^3/ul (0.83-4.51); Lymphocyte % 33.1 % (19-41); Mean Corp Hgb Conc 35.3 g/dL (32-36); Mean Corpuscular Hgb 31.3 pg (27.0-32.0); Mean Corpuscular Volume 88.5 fL (80-94); Mean Platelet Vol. 9.1 fl (6.2-12.0); Monocyte# 0.33 X10^3/uL; NRBC Flagged by Analyzer 0 % (0-5); Neutrophil # 3.22 X10^3/uL (2.7-7.7); Neutrophil % 58.2 % (47-70); Platelet Count 285 K/mm3 (150-450); RBC Distribution Width CV 11.5 % (11.6-14.6); RBC Distribution Width SD 36.8 fl (35.1-43.9); Red Blood Count 5.24 M/mm3 (4.6-6.2); White Blood Count 5.5 K/mm3 (4.4-11.0)
[2024-03-26 13:33] LABS: ALB/GLOB Ratio 1.1 RATIO (0.9-2.4); AST(SGOT) 21 U/L (15-37); Alanine Aminotransfer ALT/SGPT 65 U/L (16-61); Albumin, Serum 4.2 g/dL (3.2-5.0); Alkaline Phosphatase 73 U/L (45-117); Anion Gap 7 (5-15); BUN 13 mg/dL (7-18); BUN/Creat Ratio 13.2 RATIO (10-20); Calcium,Total 9.5 mg/dL (8.5-10.1); Chloride 103 mmol/L (98-107); Cholesterol 245 mg/dL (200); Creatinine, Serum 0.98 mg/dL (0.70-1.30); EST Glomerular Filtration Rate 88 mL/min (>60); Est Glom Filt Rate - Afr Amer 107 mL/min (>60); Globulin 3.8 g/dL (2.2-4.2); Glucose 101 mg/dL (74-106); High Density Lipoprotein 55 mg/dL; Potassium 4.5 mmol/L (3.5-5.1); Sodium Level 137 mmol/L (136-145); Triglycerides 160 mg/dL; Troponin-I HS 4 pg/mL (3.0-78.0); Very Low Density Lipoprotein 32 mg/dL (5-40)
== END | disposition home or self-care (01) ==
LOC: BIMLAB 12:09
PROVIDERS: PCP Internal Medicine; Referring Provider Nurse Practitioner; Visit Provider Nurse Practitioner
DX: Z00.00 Encounter for general adult medical examination without abnormal findings (principal); R07.9 Chest pain, unspecified
CPT/HCPCS: 36415; 80053; 80061; 84484; 85025

== ENCOUNTER 2024-09-10 13:01 | Outpatient (CLI) | payer OTHER, SELFPAY | END 2024-09-10 23:59 | disposition home or self-care (01) | LOC: LABSPEC 13:02 | PROVIDERS: PCP Internal Medicine; Referring Provider Physician Assistant; Visit Provider Physician Assistant | DX: R07.89 Other chest pain (principal); R05.9 Cough, unspecified; R50.9 Fever, unspecified; J11.1 Influenza due to unidentified influenza virus with other respiratory manifestations | CPT/HCPCS: 87631 ==

== ENCOUNTER 2024-09-14 12:24 | Outpatient (CLI) | payer OTHER, SELFPAY ==
--- NOTE | 2024-09-14 12:28 | CT_ITS ---
PROCEDURE: LIMITED CHEST CT CARDIAC ONLY; CARDIAC ANGIO AND CALC SCORING REASON FOR EXAM: Chest pain. TECHNIQUE: CT coronary artery calcification evaluation. COMPARISON: Chest x-ray 07/04/2023. FINDINGS: Limited imaging of the lump shows no abnormality. No pleural effusion or pulmonary edema is noted. No pericardial effusion is evident. CALCIUM SCORING RESULTS (Volume / Agatston): LEFT MAIN: 0 / 0 RCA: 0 / 0 LAD: 0 / 0 CIRCUMFLEX: 0 / 0 PDA: 0 / 0 Total: 0 / 0 Patient Age: 44 Percentile: 0 CA Threshold: 130HU Reference: Rafael Blackburn al., [facility], 2001 ([place], [id number] patients) CT/Limited Chest CT Cardiac Only IMPRESSION: No evidence of coronary artery calcification. Calcium score 0. Age adjusted p ercentile of 0%. One or more dose reduction techniques were used (e.g., Automated exposure contr ol, adjustment of the mA and/or kV according to patient size, use of iterative reconstruction technique). Reading Location: [id number]
--- NOTE | 2024-09-14 12:28 | CT_ITS ---
PROCEDURE: LIMITED CHEST CT CARDIAC ONLY; CARDIAC ANGIO AND CALC SCORING REASON FOR EXAM: Chest pain. TECHNIQUE: CT coronary artery calcification evaluation. COMPARISON: Chest x-ray 07/04/2023. FINDINGS: Limited imaging of the lump shows no abnormality. No pleural effusion or pulmonary edema is noted. No pericardial effusion is evident. CALCIUM SCORING RESULTS (Volume / Agatston): LEFT MAIN: 0 / 0 RCA: 0 / 0 LAD: 0 / 0 CIRCUMFLEX: 0 / 0 PDA: 0 / 0 Total: 0 / 0 Patient Age: 44 Percentile: 0 CA Threshold: 130HU Reference: Rafael Blackburn al., [facility], 2001 ([place], 35,[id number] patients) CT/Cardiac Angio AND Calc Scoring IMPRESSION: No evidence of coronary artery calcification. Calcium score 0. Age adjusted p ercentile of 0%. One or more dose reduction techniques were used (e.g., Automated exposure contr ol, adjustment of the mA and/or kV according to patient size, use of iterative reconstruction technique). Reading Location: [id number]
[2024-09-14 12:38] VITALS: BP 141/95; PULSE 71; RESP 18; TEMP 36; O2SAT 96; BMI 31.1
[2024-09-14 13:13] VITALS: BP 113/68; PULSE 72
[2024-09-14] MEDS: Nitroglycerin SL (ED/IMG/CATH) 0.4 MG TABLET SL (13:13)
[2024-09-14] MEDS: 0.9% Saline Lock 10 ML Syringe IV (13:14)
[2024-09-14 13:15] VITALS: BP 113/68; PULSE 72; RESP 18; O2SAT 97
--- NOTE | 2024-09-14 16:52 | CCTA.WCONT ---
CCTA w/Cont Coronary Arteries Date of Study:: 09/14/24 HLD Coronary Calcium Scoring: High-resolution Computed Tomographic imaging of the chest was performed on [09/14/24], with particular attention paid to the coronary arteries. Intravenous contrast agent was administered per protocol and images reconstructed and displayed. LEFT MAIN CORONARY ARTERY: The left main coronary artery arises of the left coronary cusp with no significant atherosclerotic plaquing in the coronary calcium score is 0 [] LEFT ANTERIOR DESCENDING CORONARY ARTERY: This arises from the left main coronary artery with no significant atherosclerotic plaquing. The vessel continues towards the apex of the left ventricle.: Coronary calcium score is 0 [] LEFT CIRCUMFLEX CORONARY ARTERY: Nondominant left circumflex artery with no significant atherosclerotic plaquing: Coronary calcium score of 0 [] RIGHT CORONARY ARTERY: Dominant right coronary artery arising from the right coronary cusp with no significant atherosclerotic plaquing. Coronary calcium score 0 [] THORACIC AORTA: Normal size [] PULMONARY ARTERY: Normal [] LEFT ATRIUM/APPENDAGE: [] MITRAL VALVE: Normal [] AORTIC VALVE: Trileaflet [] LEFT VENTRICLE: [] CORONARY CALCIUM SCORE:0 No significant atherosclerotic plaquing noted. []
== END 2024-09-14 23:59 | disposition home or self-care (01) ==
LOC: CT 12:26
PROVIDERS: PCP Internal Medicine; Referring Provider Physician Assistant Medical; Visit Provider Physician Assistant Medical
DX: R07.9 Chest pain, unspecified (principal); E78.00 Pure hypercholesterolemia, unspecified
CPT/HCPCS: 75571; 75574; 76380; Q9967; A4216

== ENCOUNTER → 2025-07-26 | Outpatient (CLI) | payer OTHER, SELFPAY ==
--- OUTSIDE RECORDS SUMMARY | 2025-07-26 07:35 | XMS RPT_ITS | CCD ---
Author Organization [facility] Care Team Providers Care Disintegrator Feeder Name Role Phone Dr. Arelis Sweet Primary Care Provider Dr. Arelis Sweet Referring Provider [phone] Lucas, Dr. Rogers Attending Provider Dr. Arelis Sweet Primary Care Provider Dr. Seth Hunter Attending Provider [phone] Arelis Sweet Attending Provider Dr. Arelis Sweet Referring Provider KVNG العلي Attending Provider Unavailable Dr. Bereket Escobar Attending Provider [phone] Errol Shell Attending Provider Dr. Bereket Escobar Referring Provider [phone] Kee, Arelis Primary Care Unavailable Zuleima Looney Attending Unavailable Kee, Arelis Primary Care Unavailable Zuleima Looney Attending Unavailable Kee, Arelis Primary Care Unavailable Zuleima Looney Attending Unavailable Annie Miller Attending Unavailable Kee, Arelis Referring Unavailable Kee, Arelis Primary Care Unavailable SkZuleima castro Attending Unavailable Kee, Arelis Primary Care Unavailable Kee, Arelis Primary Care Unavailable SkZuleima castro Attending Unavailable Kee, Arelis Primary Care Unavailable Zuleima Looney Attending Unavailable Anand Ortega Attending Unavailable Anand Ortega Referring Unavailable Kee, Arelis Primary Care Unavailable Joy Ignacio Attending Unavail able Joy Ignacio Referring Unavail able Arelis Sweet Primary Care Unavailable Joy Ignacio Consulting Unavail able Joy Ignacio Referring Unavail able Seth Hunter Attending Unavailable Arelis Sweet Primary Care Unavailable Bereket Escobar Attending Unavailable Arelis Sweet Primary Care Unavailable Arelis Sweet Referring Unavailable Zuleima Looney Attending Unavailable Arelis Sweet Primary Care Unavailable Allergies Allergy Classification Reported Allergen(s) Allergy Type Date of Onset Reaction(s) Facility (6 sources) Theophylline Drug Allergy 05-01-2022 Anaphylaxis [facility] (1 source) Theophylline Drug Allergy 09-10-2024 [facility] Repository Medications Current Medications Medication Drug Class(es) Dates Sig (Normalized) Sig (Original) famotidine 20 mg oral tablet (6 sources) Histamine-2 Receptor Antagonist Start: 08-23-2020 take 40 mg by mouth at bedtime Famotidine Active 40 MG PO AT BEDTIME August 23, 2020 12:00am pantoprazole 40 mg delayed release oral tablet (5 sources) Proton Pump Inhibitor Start: 08-31-2022 End: 07-04-2023 take 40 mg by mouth once daily Pantoprazole Active 40 MG PO DAILY July 04, 2023 5:02pm Completed/Discontinued Medications Medication Drug Class(es) Dates Sig (Normalized) Sig (Original) ciprofloxacin 500 mg oral tablet (6 sources) Quinolone Antimicrobial Start: 2020 End: 08-03-2020 take 500 mg by mouth twice daily Ciprofloxacin Hcl Discontinued 500 MG PO TWICE A DAY 2020 12:00am August 03, 2020 3:39pm Problems Active Problems Problem Classification Problem Date Documented Da te Episodic/Chronic Adjustment disorders (1 source) Adjustment disorder with mixed anxiety and depressed mood; Translations: [Adjustment disorder with mixed anxiety and depressed mood] Onset: 04-19-2025 Chronic Bacterial infection; unspecified site (6 sources) Tetanus; Translations: [Other tetanus] 05-09-2022 Episodic 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; 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] 10-09-2022 Chronic Disorders of lipid metabolism (1 source) Pure hypercholesterolemi a, unspecified; Translations: [Pure hypercholesterolemi a, unspecified] Onset: 10-05-2024 Chronic Immunizations and screening for infectious disease (3 sources) Needs influenza immunization; Translations: [Encounter for immunization] Onset: 05-31-2025 07-05-2023 Episodic Other connective tissue disease (1 source) Pain in calf; Translations: [Pain in left lower leg] 08-09-2023 Episodic Other connective tissue disease (1 source) Pain in left lower leg; Translations: [Pain in limb] 08-09-2023 Episodic Other gastrointestinal disorders (6 sources) Abdominal bloating; Translations: [Abdominal distension (gaseous)] 09-04-2021 Episodic Other gastrointestinal disorders (3 sources) Abdominal distension (gaseous); Translations: [Flatulence, eructation, and gas pain] 08-31-2022 Episodic Other liver diseases (9 sources) Enzyme level - finding; Translations: [Elevated transaminase measurement] 09-13-2021 Episodic Other lower respiratory disease (1 source) Cough; Translations: [Refractory chronic cough] 06-26-2023 Episodic Past or Other Problems Problem Classification Problem Date Documented Da te Episodic/Chronic Nonspecific chest pain (3 sources) Chest pain, unspecified; Translations: [Other chest pain] Onset: 10-02-2024 Episodic Unclassified (6 sources) history ORIF hand 03-05-2022 Unclassified (6 sources) history right ankle surgery 03-05-2022 Unclassified (6 sources) Accidental needle stick injury; Translations: [Needlestick injury accident] 05-09-2022 Results Test Name Value Interpretation Reference Range Facility MR/BMSTejinderBPon 06-15-2025 MR/BMS.BP [address], [address] [place] [id number] OFFICE VISIT Date of Service: 06/14/25 MR#: [id number] Acct: [id number] Name: ANAND GREGORY Rep #: [id number] : 1980 Provider: [facility] Zuleima rodriguez Age/Sex: 44/M Location: [facility] Status: Signed Intake Vital Signs 11/30/24 12:49 04/12/25 10:03 06/15/25 13:59 Height 6 ft 6 ft 6 ft BP Intake Visit Reasons: Follow up Allergies theophylline (From [facility]) Allergy (Severe, Verified 09/10/24 12:41) Anaphylaxis [facility] Medical History (Updated 09/10/24 @ 13:[address] Bereket Escobar MD) Chest tightness Cough Pain of left calf Bloating Dysphagia Surgical History history right ankle surgery History of excision of pilonidal cyst history ORIF hand Family History Father Cancer prostate and bladder Social History Smoking Status: Never smoker alcohol intake: current substance use type: does not use HPI History of Present Illness HPI: Anand Gregory is a 44 year-old male returning for therapy. He reported an increase in connection with his in daily interactions. Anand also discussed general interactions patterns including stressors and triggers to negative emotions/conflicts in the relationship. He described a pattern of conflict avoidance. Anand identified struggling with empty nest due to son's transition to college and another son getting ready to attend college the following year. Anand reported limited participation in hobbies and exercise over the last year complicated by schedule due to 's illness. He stated that he recently took an antidepressant for a period of time to get out of the hole but had stopped taking it 2 weeks ago. The main themes of the session were articulation of experiences and feelings within the couple, coping with recent changes in the family situation, and exploration and coping with depression and sadness. Encouraged verbalization of emotions while providing support. Normalized emotions. Worked on implementing small forms of coping and self-care in day to day functioning. Encouraged exploration of strengths. Reinforced utilization of emotions. No SI. Future-oriented. Exam Mental Status Exam - Psych Appearance casually dressed and well kempt Attitude cooperative, calm and engaged Activity/Motor Behavior fidgeting and limited eye contact Speech regular rate, regular volume and regular prosody Mood sad and depressed Affect congruent Thought Process linear, logical and coherent Thought Content no delusions and no hallucinations Suicidal Ideation none Homicidal Ideation none Attention intact Concentration intact Sensorium/Orientation alert and oriented x3 Memory/Cognition intact Insight good Judgement good Assessment Plan Assessment Plan (1) Adjustment disorder with mixed anxiety and depressed mood: Plan: therapy to using CBT, DBT, and ACT interventions to address life stressors contributing to depressive and anxious symptoms. Referral for medication evaluation if desired or indicated. Need to rule out depression and anxiety noted. Plan TREATMENT PLAN Goal 1 - Address sadness and anxiety associated with life stressors AEB self-report of increased coping resources. Objective 1 - Learn and implement skills for managing stress and sadness Intervention 1 - Assist pt. in developing coping such as relaxation, exercise, cognitive reframing, and problem-solving. Visit Details Duration of visit (minutes): 60 Duration of counseling (minutes): 60 Total time (minutes): 60 Type of visit: psychotherapy and [id number] [place] [address] PSYTX W PT 60 MINUTES Patient Type Established Diagnoses Adjustment disorder with mixed anxiety and depressed mood F43.23 Time Spent (min) 60 06/15/25 1359 Date Zuleima Looney [facility] Cosigner Signature: Date (if applicable) CC: Normal [facility] Office Visit Reporton 2024 Office Visit Report [facility] [address] [place] [address] OFFICE VISIT Date of Service: 05/20/25 MR#: [id number] Acct: [id number] Patient: ANAND GREGORY Rep #: [id number] : 1980 Provider: ABIEL NURSE Age/Sex: 44/M Location: [facility] Status: Signed Intake Vital Signs 04/12/25 10:03 Height 6 ft Intake Visit Reasons: flu shot Chief Complaint: Cough, Chest Tightness Allergies theophylline (From [facility]) Allergy (Severe, Verified 09/10/24 12:41) Anaphylaxis Immunizations Flucelvax 6619-4211 (PF) 45 mcg (15 mcg x 3)/0.5 mL IM syringe Performing Provider: MARIA DE JESUS Sanchez Performing Location: [facility] Administered by: Fanny Holland MA on 05/20/25 17:01 Dose Route Admin Location Dispensed Lot Number Expiration Date Package NDC NDC Compounder Flavorings 0.5 mL IM Left Deltoid 0.5 mL [id number] 12/12/25 [id number] [employer]. VIS Given Date VIS Provided VIS Publication Date 05/20/25 Single Vaccine 24 Eligibility Eligibility Date Funding Source Not Applicable Assessment and Plan Assessment and Plan Orders: Orders Influenza Immunization Today Z23 - Encounter for immunization 05/20/25 1709 Date Annie Miller NP-C [place] Signature: Date (if applicable) CC: Normal [facility] MR/BMS.BPon 04-12-2025 MR/[place] [address] OFFICE VISIT Date of Service: 04/12/25 MR#: [id number] Acct: [id number] Name: ANAND GREGORY Rep #: [id number] : 1980 [facility] Age/Sex: 44/M Location: [facility] Status: Signed Intake Vital Signs 09/14/24 12:38 04/12/25 10:03 Height 6 ft 6 ft BP Intake Visit Reasons: f/u Allergies theophylline (From [facility]) Allergy (Severe, Verified 09/10/24 12:41) Anaphylaxis [facility] Medical History (Updated 09/10/24 @ 13:[address] Bereket Escobar MD) Chest tightness Cough Pain of left calf Bloating Dysphagia Surgical History history right ankle surgery History of excision of pilonidal cyst history ORIF hand Family History Father Cancer prostate and bladder Social History Smoking Status: Never smoker alcohol intake: current substance use type: does not use HPI History of Present Illness HPI: Anand Gregory is a 44 year-old male returning for therapy. He reported increased depressive symptoms and contemplating whether or not to explore medication to reduce symptoms. Anand identified that 's most recent clinical trial did not go well and concerns about test results. He reported being very busy with his children's schedules and his 's treatment. Anand identified internalizing many of his emotions and concern about openly addressing thoughts and feelings with his due to her health issues. Encouraged verbalization of emotions while providing support. Normalized emotions. Worked on dialectics. Explored values and discussed value- based action. Encouraged utilization of supports as well as considering a support group. Worked on feelings of guilt providing psychoeducation on hindsight bias. No reports of SI. Future-oriented. Exam Mental Status Exam - Psych Appearance casually dressed and well kempt Attitude cooperative, calm and engaged Activity/Motor Behavior fidgeting and limited eye contact Speech regular rate, regular volume and regular prosody Mood sad and depressed Affect congruent Thought Process linear, logical and coherent Thought Content no delusions and no hallucinations Suicidal Ideation none Homicidal Ideation none Attention intact Concentration intact Sensorium/Orientation alert and oriented x3 Memory/Cognition intact Insight good Judgement good Assessment Plan Assessment Plan (1) Adjustment disorder with mixed anxiety and depressed mood: Plan: therapy to using CBT, DBT, and ACT interventions to address life stressors contributing to depressive and anxious symptoms. Referral for medication evaluation if desired or indicated. Need to rule out depression and anxiety noted. Plan TREATMENT PLAN Goal 1 - Address sadness and anxiety associated with life stressors AEB self-report of increased coping resources. Objective 1 - Learn and implement skills for managing stress and sadness Intervention 1 - Assist pt. in developing coping such as relaxation, exercise, cognitive reframing, and problem-solving. Visit Details Duration of visit (minutes): 60 Duration of counseling (minutes): 60 Total time (minutes): 60 Type of visit: psychotherapy and [id number] [place] [address] PSYTX W PT 60 MINUTES Patient Type Established Diagnoses Adjustment disorder with mixed anxiety and depressed mood F43.23 Time Spent (min) 60 04/12/25 1341 Date Zuleima Looney [facility] Antolin Signature: Date (if applicable) CC: Normal [facility] MR/BMS.BPon 03-01-2025 MR/BMS.BP [facility] [address] [place] [address], [address] [place] [address] OFFICE VISIT Date of Service: 03/01/25 MR#: [id number] Acct: [id number] Name: ANAND GREGORY Rep #: [id number] : 1980 [facility] Age/Sex: 44/M Location: [facility] Status: Signed Intake Vital Signs 09/14/24 12:38 11/30/24 12:49 03/01/25 08:02 Height 6 ft 6 ft 6 ft BP Intake Visit Reasons: f/u Allergies theophylline (From [facility]) Allergy (Severe, Verified 09/10/24 12:41) Anaphylaxis [facility] Medical History (Updated 09/10/24 @ 13:[address] Bereket Escobar MD) Chest tightness Cough Pain of left calf Bloating Dysphagia Surgical History history right ankle surgery History of excision of pilonidal cyst history ORIF hand Family History Father Cancer prostate and bladder Social History Smoking Status: Never smoker alcohol intake: current substance use type: does not use HPI History of Present Illness HPI: Anand Gregory is a 44 year-old male returning for therapy. He recently enjoyed time on vacation with family and extended family. Anand reported that he is doing better than he was several months ago. Discussed being present, benefits of being present, times he recently has been mindful, and ways to increase it. Anand discussed challenges of having cancer and impact on his and family's daily living. Encouraged verbalization of emotions while providing support. Normalized emotions. Encouraged utilization of supports. Worked on how to avoid internalization of emotions. Worked on value-based action. No reports of SI. Future-oriented. Exam Mental Status Exam - Psych Appearance casually dressed and well kempt Attitude cooperative, calm and engaged Activity/Motor Behavior appropriate eye contact and fidgeting Speech regular rate, regular volume and regular prosody Mood sad Affect congruent Thought Process linear, logical, coherent and goal directed Thought Content no delusions and no hallucinations Suicidal Ideation none Homicidal Ideation none Attention intact Concentration intact Sensorium/Orientation alert and oriented x3 Memory/Cognition intact Insight good Judgement good Assessment Plan Assessment Plan (1) Adjustment disorder with mixed anxiety and depressed mood: Plan: BH therapy to using CBT, DBT, and ACT interventions to address life stressors contributing to depressive and anxious symptoms. Referral for medication evaluation if desired or indicated. Need to rule out depression and anxiety noted. Plan TREATMENT PLAN Goal 1 - Address sadness and anxiety associated with life stressors AEB self-report of increased coping resources. Objective 1 - Learn and implement skills for managing stress and sadness Intervention 1 - Assist pt. in developing coping such as relaxation, exercise, cognitive reframing, and problem-solving. Visit Details Duration of visit (minutes): 60 Duration of counseling (minutes): 60 Total time (minutes): 60 Type of visit: psychotherapy and [id number] [place] [address] PSYTX W PT 60 MINUTES Patient Type Established Diagnoses Adjustment disorder with mixed anxiety and depressed mood F43.23 Time Spent (min) 60 03/01/25 0811 Date Zuleima Looney [facility] Cosigner Signature: Date (if applicable) CC: Eduin [facility] MR/Sarita 02-04-2025 MR/ [facility] [address] [place] [address], [address] [place] [address] OFFICE VISIT Date of Service: 02/02/25 MR#: [id number] Acct: [id number] Name: ANAND GREGORY Rep #: [id number] : 1980 Provider: SONNY rodriguez Age/Sex: 44/M Location: [facility] Status: Signed Intake Vital Signs 09/14/24 12:38 11/30/24 12:49 02/04/25 10:32 Height 6 ft 6 ft 6 ft BP Intake Visit Reasons: f/u Allergies theophylline (From [facility]) Allergy (Severe, Verified 09/10/24 12:41) Anaphylaxis [facility] Medical History (Updated 09/10/24 @ 13:[address] Bereket Escobar MD) Chest tightness Cough Pain of left calf Bloating Dysphagia Surgical History history right ankle surgery History of excision of pilonidal cyst history ORIF hand Family History Father Cancer prostate and bladder Social History Smoking Status: Never smoker alcohol intake: current substance use type: does not use HPI History of Present Illness HPI: Anand Gregory is a 44 male returning for therapy. He reported reduction in frustration level, positive emotions regarding son's graduation constitution party, and positive emotions about upcoming activities. Anand discussed ongoing stressors related to 's health. Encouraged verbalization of emotions while providing support. Discussed difficulties balancing self-care with need and desire to spend free time with . Also discussed challenges of finding time to spend with friends and challenges when spending time with friends. Explored options. No reports of SI. Future-oriented. Exam Mental Status Exam - Psych Appearance well kempt Attitude cooperative, calm and engaged Activity/Motor Behavior appropriate eye contact and fidgeting Speech regular rate, regular volume and regular prosody Mood sad and OK Affect congruent Thought Process linear, logical, coherent and goal directed Thought Content no delusions and no hallucinations Suicidal Ideation none Homicidal Ideation none Attention intact Concentration intact Sensorium/Orientation alert and oriented x3 Memory/Cognition intact Insight good Judgement good Assessment Plan Assessment Plan (1) Adjustment disorder with mixed anxiety and depressed mood: Plan: BH therapy to using CBT, DBT, and ACT interventions to address life stressors contributing to depressive and anxious symptoms. Referral for medication evaluation if desired or indicated. Need to rule out depression and anxiety noted. Plan TREATMENT PLAN Goal 1 - Address sadness and anxiety associated with life stressors AEB self-report of increased coping resources. Objective 1 - Learn and implement skills for managing stress and sadness Intervention 1 - Assist pt. in developing coping such as relaxation, exercise, cognitive reframing, and problem-solving. Visit Details Duration of visit (minutes): 60 Duration of counseling (minutes): 60 Total time (minutes): 60 Type of visit: psychotherapy and [id number] [place] [address] PSYTX W PT 60 MINUTES Patient Type Established Diagnoses Adjustment disorder with mixed anxiety and depressed mood F43.23 Time Spent (min) 60 02/04/25 1032 Date Zuleima Looney [facility] Cosigner Signature: Date (if applicable) CC: Normal [facility] MR/BMS.BPon 11-30-2024 MR/BMS.BP [address], [place] [address] OFFICE VISIT Date of Service: 11/30/24 MR#: [id number] Acct: [id number] Name: ANAND GREGORY Rep #: [id number] : 1980 [facility] Age/Sex: 44/M Location: [facility] [place] Status: Signed Intake Vital Signs 09/14/24 12:38 11/30/24 12:49 Height 6 ft 6 ft BP Intake Visit Reasons: f/u Allergies theophylline (From [facility]) Allergy (Severe, Verified 09/10/24 12:41) Anaphylaxis [facility] Medical History (Updated 09/10/24 @ 13:[address] Bereket Escobar MD) Chest tightness Cough Pain of left calf Bloating Dysphagia Surgical History history right ankle surgery History of excision of pilonidal cyst history ORIF hand Family History Father Cancer prostate and bladder Social History Smoking Status: Never smoker alcohol intake: current substance use type: does not use HPI History of Present Illness HPI: Anand Gregory is a 44 year-old male returning for therapy. He reported having a panic attack on 11/27/2024. Anand identified ruling out cardiac issues in Fall 2023 due to panic symptoms. Anand reported stressors balancing work, home, and 's illness. He identified little down time and that 's symptoms are high. Encouraged verbalization of emotions while providing support. Explored persons Anand could utilize for assistance and/or support and obstacles to doing so. Examined thought patterns using CBT interventions. Explored coping and actions or activities resulting in reduced anxiety. Anand reported struggling with mindfulness and breathing activities but doing well with physical activity, distraction, and time with his children. No reports of SI. Future- oriented to son's upcoming graduation. Exam Mental Status Exam - Psych Appearance casually dressed and well kempt Attitude cooperative, calm and engaged Activity/Motor Behavior appropriate eye contact and fidgeting Speech regular rate, regular volume and regular prosody Mood anxious Affect anxious Thought Process linear, logical, coherent and goal directed Thought Content no delusions and no hallucinations Suicidal Ideation none Homicidal Ideation none Attention intact Concentration other (Varies depending upon how is doing.) Sensorium/Orientation alert and oriented x3 Memory/Cognition intact Insight good Judgement good Assessment Plan Assessment Plan (1) Adjustment disorder with mixed anxiety and depressed mood: Plan: therapy to using CBT, DBT, and ACT interventions to address life stressors contributing to depressive and anxious symptoms. Referral for medication evaluation if desired or indicated. Need to rule out depression and anxiety noted. Plan TREATMENT PLAN Goal 1 - Address sadness and anxiety associated with life stressors AEB self-report of increased coping resources. Objective 1 - Learn and implement skills for managing stress and sadness Intervention 1 - Assist pt. in developing coping such as relaxation, exercise, cognitive reframing, and problem-solving. Visit Details Duration of visit (minutes): 60 Duration of counseling (minutes): 60 Total time (minutes): 60 Type of visit: psychotherapy and [id number] [place] [address] PSYTX W PT 60 MINUTES Patient Type Established Diagnoses Adjustment disorder with mixed anxiety and depressed mood F43.23 Time Spent (min) 60 11/30/24 1352 Date Zuleima Looney [facility] Cosigner Signature: Date (if applicable) CC: Normal [facility] MR/BMS.BPon 11-23-2024 MR/BMS.BP [address], [place] [address] OFFICE VISIT Date of Service: 11/16/24 MR#: [id number] Acct: [id number] Name: ANAND GREGORY Rep #: [id number] : 1980 Provider: [facility] Zuleima rodriguez Age/Sex: 44/M Location: [facility] [place] Status: Signed Intake Vital Signs 09/14/24 12:38 11/23/24 08:42 Height 6 ft 6 ft Weight: 230 lb BMI 31.1 BP 141/95 H Position Sitting Respiration 18 Pulse 71 Temp 96.8 F L Pulse Oximetry (%) 96 BP Intake Visit Reasons: Establish Care Allergies theophylline (From Edson-Dur) Allergy (Severe, Verified 09/10/24 12:41) Anaphylaxis [facility] Medical History (Updated 09/10/24 @ 13:[address] Bereket Escobar MD) Chest tightness Cough Pain of left calf Bloating Dysphagia Surgical History history right ankle surgery History of excision of pilonidal cyst history ORIF hand Family History Father Cancer prostate and bladder Social History Smoking Status: Never smoker alcohol intake: current substance use type: does not use HPI History of Present Illness History provided by: patient HPI: Anand Gregory is a 44 year-old male who participated in a diagnostic assessment to begin BH therapy. He participated in counseling a couple years ago. Anand wants to address life stressors. He has a previous history of depression and anxiety and has taken Lexapro and Trintellix in the past. Anand prefers to address symptoms without medication. He identifies that his depressive symptoms tend to be greater than his anxious symptoms. His has terminal cancer. She was diagnosed 8 years ago. Anand is balancing work, 3 teenage sons, his 's illness, and some stressors related to aging. He is seeking counseling for help with organization and planning and managing anxiety. Sleep - pretty good Interests - States harder to enjoy interests. Reports typically organized social activities. Energy - Comes and goes in spurts. Guilt - Reports some feelings of worthlessness. Denies hopelessness or guilt. Concentration - Has always been a little difficult. Concentration level has recently varied depending on how his is doing. Appetite - Comfort eater who eats when depressed. Psychomotor - WNL Suicide - No past or present SI. No family history of suicide. Memory - pretty good Depression - Rates 4/5 on a scale from 1 to 10 with 10 being worst. Has experienced increased quietness and decreased involvement in social activities. Anxiety - Rates 4/5 that can go up to a 7/8. Recently, anxiety has been up. Has had panic attacks in the past. Obsessions - Denies Compulsions - Denies Jojo - Denies PTSD - Had a couple of friends when he was 16. has terminal cancer. Denies any other traumas. Psychosis - No symptoms. Developmental History Developmental History: Family of origin - Youngest of 3 children born to parents who are . Has an older brother and an older sister. Born and raised in [place], [place]. Living Status - Resides with and their 3 sons ages 18, 17, and 15. AoD history - Chewed tobacco but quit in college. No other nicotine use. Not a drinker. Will occasionally have a beer. Denies use of stimulants, opioids, or cannabis. Education - Graduate of [employer]. Undergraduate degree in pre-med from [employer] (attended [employer] for 1 year). 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 Legal issues - None Social - Talks regularly with his brother and several friends. Judaism - Adventism who attends rastafarian weekly and participates in 2 small groups. Cultural - Identifies with Hungarian culture. Has a Kinyarwanda heritage. history - None (Father was in the .) Psychiatric History Previous psychiatric treatment history: No Previous psychiatric diagnoses: Depression, Anxiety Previous psychiatric treatment programs: none Suicidal Ideation Current: No Past: No History of suicide attempt: No Suicide Risk Assessment Suicide risk factors: depression and other ( has terminal cancer.) Suicide protective factors: future looking (Son's graduation.), responsibility for family, family support, social support, spirituality and engaged in work Self Injurious Behavior Current: none Past: none Violent Behavior History of violent behavior: No Medication Trials Previous psychiatric medication trials: Lexapro (on for longest period of time) Trintellix ( noticed a reduction in hi (more content not included)... Normal [facility] Cardiac Angio AND Calc Meredith jjharini 09-14-2024 Cardiac Angio AND Calc Scoring [facility] Imaging Services [address] [place] [address] Cardiac Angio AND Calc Scoring MR#: [id number] Acct: [id number] Name: ANAND GREGORY Rep #: [id number] : 1980 M 44 From: Alex Pavon PCP: Dr. Arelis Sweet MD Status: REG CLI Study: Cardiac Angio AND Calc Scoring Date of Exam: 0 09/14/24 Exam# [id number] Ordering Dr: Joy Fontanez PROCEDURE: LIMITED CHEST CT CARDIAC ONLY; CARDIAC ANGIO AND CALC SCORING REASON FOR EXAM: Chest pain. TECHNIQUE: CT coronary artery calcification evaluation. COMPARISON: Chest x-ray 07/04/2023. FINDINGS: Limited imaging of the lump shows no abnormality. No pleural effusion or pulmonary edema is noted. No pericardial effusion is evident. CALCIUM SCORING RESULTS (Volume / Agatston): LEFT MAIN: 0 / 0 RCA: 0 / 0 LAD: 0 / 0 CIRCUMFLEX: 0 / 0 PDA: 0 / 0 Total: 0 / 0 Patient Age: 44 Percentile: 0 CA Threshold: 130HU Reference: Rafael Blackburn al., [facility], 2001 ([place], 35,246 patients) CT/Cardiac Angio AND Calc Scoring IMPRESSION: No evidence of coronary artery calcification. Calcium score 0. Age adjusted percentile of 0%. One or more dose reduction techniques were used (e.g., Automated exposure control, adjustment of the mA and/or kV according to patient size, use of iterative reconstruction technique). Reading Location: [address] CC: Dr. Arelis Sweet MD; NGUYEN Lawson Green End Worker: Signed Normal [facility] Coronary Angiography CTon Coronary Angiography CT [facility] Imaging Services [address] [place] [address] 09/14/24 1652 MR#: [id number] Acct: [id number] Name: ANAND GREGORY Rep #: [id number] : 1980 44 From: Seth Hunter MD PCP: Dr. Arelis Sweet MD Status:REG CLI Y Location: CT CCTA w/Cont Coronary Arteries Date of Study:: 09/14/24 HLD Coronary Calcium Scoring: High-resolution Computed Tomographic imaging of the chest was performed on [09/14/24], with particular attention paid to the coronary arteries. Intravenous contrast agent was administered per protocol and images reconstructed and displayed. LEFT MAIN CORONARY ARTERY: The left main coronary artery arises of the left coronary cusp with no significant atherosclerotic plaquing in the coronary calcium score is 0 [] LEFT ANTERIOR DESCENDING CORONARY ARTERY: This arises from the left main coronary artery with no significant atherosclerotic plaquing. The vessel continues towards the apex of the left ventricle.: Coronary calcium score is 0 [] LEFT CIRCUMFLEX CORONARY ARTERY: Nondominant left circumflex artery with no significant atherosclerotic plaquing: Coronary calcium score of 0 [] RIGHT CORONARY ARTERY: Dominant right coronary artery arising from the right coronary cusp with no significant atherosclerotic plaquing. Coronary calcium score 0 [] THORACIC AORTA: Normal size [] PULMONARY ARTERY: Normal [] LEFT ATRIUM/APPENDAGE: [] MITRAL VALVE: Normal [] AORTIC VALVE: Trileaflet [] LEFT VENTRICLE: [] CORONARY CALCIUM SCORE:0 No significant atherosclerotic plaquing noted. [] 09/14/24 1654 Date Seth Hunter MD Cosigner Signature (if applicable): Date CC: Dr. Seth Hunter MD; Dr. Arelis Sweet MD; NGUYEN Lawson Signed Normal [facility] Limited Chest CT Cardiac Onl yon 09-14-[address] Cardiac Only [facility] Imaging Services [address] [place] [id number] Cardiac Only MR#: [id number] Acct: [id number] Name: ANAND GREGORY Rep #: [id number] : 1980 M 44 From: Alex Pavon PCP: Dr. Arelis Sweet MD Status: [facility] CLI Study: Limited Chest CT Cardiac Only Date of Exam: Exam# [id number] Ordering Dr: Joy Fontanez PROCEDURE: LIMITED CHEST CT CARDIAC ONLY; CARDIAC ANGIO AND CALC SCORING REASON FOR EXAM: Chest pain. TECHNIQUE: CT coronary artery calcification evaluation. COMPARISON: Chest x-ray 07/04/2023. FINDINGS: Limited imaging of the lump shows no abnormality. No pleural effusion or pulmonary edema is noted. No pericardial effusion is evident. CALCIUM SCORING RESULTS (Volume / Agatston): LEFT MAIN: 0 / 0 RCA: 0 / 0 LAD: 0 / 0 CIRCUMFLEX: 0 / 0 PDA: 0 / 0 Total: 0 / 0 Patient Age: 44 Percentile: 0 CA Threshold: 130HU Reference: Rafael Blackburn al., [facility], 2001 ([place], 35,246 patients) CT/Limited Chest CT Cardiac Only IMPRESSION: No evidence of coronary artery calcification. Calcium score 0. Age adjusted percentile of 0%. One or more dose reduction techniques were used (e.g., Automated exposure control, adjustment of the mA and/or kV according to patient size, use of iterative reconstruction technique). Reading Location: [address] CC: Dr. Arelis Sweet MD; NGUYEN Lawson Green End Worker: Signed Normal [facility] Internal Medicine Office Vis ito 09-10-2024 Internal Medicine Office Visit [facility] [address] [place] [address] [place] [address] OFFICE VISIT Date of Service: 09/10/24 MR#: [id number] Acct: [id number] Name: ANAND GREGORY Rep #: [id number] : 1980 Provider: Dr. Bereket candelaria MD Age/Sex: 44/M Location: [facility] [place] Status: Signed Intake Vital Signs 04/03/24 15:25 09/10/24 12:42 Height 6 ft 6 ft Weight: 233 lb BMI 31.6 BP 123/80 H 118/80 Blood Pressure Location Lt brachial Lt brachial Position Sitting Sitting Respiration 18 16 Pulse 66 89 Pulse Source Monitor Monitor Temp 98.7 F Temp Source Temporal Pulse Oximetry (%) 96 96 Oxygen Delivery Method room air Intake Visit Reasons: SICK Chief Complaint: Cough, Chest Tightness Is patient in pain?: No Allergies theophylline (From Edson-Dur) Allergy (Severe, Verified 09/10/24 12:41) Anaphylaxis Medications ???Medication ???Instructions ???Recorded ???Confirmed ???Type oseltamivir 75 mg capsule (Tamiflu) 75 mg PO QDAY #30 caps 08/29/24 09/10/24 Rx nirmatrelvir 300 mg (150 mg See Rx Instructions PO .COMPLEX 09/10/24 Rx x2)-ritonavir 100 mg tablet,dose #30 tabs pack (Paxlovid) [facility] Medical History (Updated 09/10/24 @ 13:[address] Bereket Escobar MD) Chest tightness Cough Pain of left calf Bloating Dysphagia Surgical History history right ankle surgery History of excision of pilonidal cyst history ORIF hand Family History Father Cancer prostate and bladder Social History Smoking Status: Never smoker alcohol intake: current substance use type: does not use HPI HPI Chief Complaint: Cough, Chest Tightness Details: ANAND GREGORY, is a 44 M who presents to the office today for an acute visit. He reports a 2-week history of cough and some chest discomfort. He thought he was feeling better however woke up today with increased cough, chest tightness, aches, chills and overall feeling of unwell. History of sick contacts. No nausea, vomiting or change in bowel habit. ROS Const Constitutional: No body ache, chills, excessive sweating, fatigue, fever(s), frequent falls, headache(s), snoring, weakness, sleep problems or change in appetite Eyes Eyes: No blurry vision, change in vision or Light sensitivity ENT ENT: No abnormal hearing, ear or mastoid pain, tinnitus, nasal congestion, nasal discharge, headache(s), neck pain or sore throat Resp Respiratory: Positive for cough (DRY) Cough: Yes non-productive and chest congestion; No shortness of breath, snoring or wheezing Cardio Cardiology: No chest pain at rest, chest pain with exertion, excessive sweating, shortness of breath, dyspnea on exertion, lightheadedness, orthopnea or palpitations Gastro GI: No abdominal pain, change in bowel habits, constipation, cramping, diarrhea or nausea/dyspepsia Genitourinary Male: No burning urination, painful urination, urinary incontinence or urinary frequency Musc Musculoskeletal: No abnormal gait, joint pain, back pain, limited range of motion, muscle weakness, neck pain or numbness Skin Skin: No dry skin, redness, lesions, itchy eyes, rash or wounds Neuro Neurology: No abnormal gait, abnormal hearing, weakness, frequent falls, headache(s), memory loss or numbness Psych Psychiatric: No anxiety, No change in appetite, No depression, No memory loss, No panic attacks and No Thoughts of harming yourself/Others Endo Endocrine: No cold intolerance, excessive sweating, fatigue, flushing, heat intolerance, increased thirst/drinking or increased hunger Aller/Imm Allergy/Immunologic: No itchy eyes, seasonal allergy symptoms, hives or wheezing Exam Const General: cooperative and comfortable Orientation: alert, awake and oriented x3 HENMT Head: normal to inspection, normocephalic and atraumatic Ears: hearing grossly normal bilaterally Eyes General: appearance normal, both eyes and all related structures Neck Neck: normal visual inspection and full ROM Resp Effort Inspection: cough Neuro General: patient alert, patient awake, patient oriented x3, moves all extremities and CN's II-XI intact bilaterally Psych Appearance: grossly normal Mental Status: mental status grossly normal Mood: congruent mood Affect: normal affect Coding Level of Care Code Off vis,est,level 3 Diagnoses Cough R05.9 Chest tightness R07.89 Assessment and Plan Assessment and Plan (1) Cough: Status: Acute (2) Chest tightness: Status: Acute Orders: Orders COV + FLU + RSV PCR Today Medications: New nirmatrelvir-ritonavir 300 mg (150 mg x 2)-100 mg take TWO 150 mg tablets of nirmatrelvir with ONE 100 mg tablet of ritonavir (more content not included)... Normal [facility] M100.678on 09-10-2024 M100.678 Pending SARS-CoV-2 (COVID 19) A Positive A INFLUENZA A Negative INFLUENZA B Negative RSV PCR Negative SARS-CoV-2 (COVID 19) Normal [facility] Comment on above: Performed By: #### M 100.678 #### [facility] [address] [place], [place] [address]all [facility] [place], [address] Absolute lymphocyte countOrd ered By: Rohit Hamlin on 06-26-2023 Lymphocytes Auto (Unsp spec) [#/Vol] 1.99 10*3/uL 0.83-4.51 [facility] Basophil percentageOrdered B y: Rohit Boubacar on 06-26-2023 Basophils/100 WBC (Bld) 0.6 % 0-1 [facility] Bilirubin [Mass/Vol] 0.50 mg/dL 0.20-1.00 [facility] Comment on above: For patients on eltr ombopag therapy, use of Dimension [place] TBIL is not recommended. Chloride [Moles/Vol] 101 mmol/L 98-107 [facility] Eosinophils/100 WBC (Bld) 1.0 % 0-5 [facility] Glucose [Mass/Vol] 90 mg/dL 74-106 [facility] Neutrophils (Bld) [#/Vol] 5.2 10*3/uL 2.0-7.7 [facility] Neutrophils/100 WBC (Bld) 64.9 % 47-70 [facility] Potassium [Moles/Vol] 3.9 mmol/L 3.5-5.1 [facility] Protein [Mass/Vol] 7.9 g/dL 6.4-8.2 [facility] Sodium [Moles/Vol] 138 mmol/L 136-145 [facility] WBC (Bld) [#/Vol] 8.0 10*3/uL 4.4-11.0 [facility] Blood erythrocytes count (nu mber/volume)Ordered By: Rohit Hamlin on 06-26-2023 RBC (Bld) [#/Vol] 5.20 10*6/uL 4.6-6.2 [place] Blood hemoglobin measurement (mass/volume)Ordered By: Rohit Hamlin on 06-26-2023 Hemoglobin (Bld) [Mass/Vol] 16.3 g/dL 13.0-16.5 [facility] Blood lymphocytes/100 leukoc ytesOrdered By: Rohit Hamlin on 06-26-2023 Lymphocytes/100 WBC (Bld) 25.0 % 19-41 [facility] Blood monocytes/100 leukocyt esOrdered By: Rohit Hamlin on 06-26-2023 Monocytes/100 WBC (Bld) 7.7 % 0-10 [facility] Blood platelet mean volumeOr dered By: Rohit Hamlin on 06-26-2023 Platelet mean volume (Bld) [Entitic vol] 9.1 fL 6.2-12.0 [facility] Determination of erythrocyte mean corpuscular volume (MCV)Ordered By: Rohit Hamlin on 06-26-2023 MCV (RBC) [Entitic vol] 88.8 fL 80-94 [facility] Hematocrit Auto (Bld) [Volum e fraction]Ordered By: Rohit Hamlin on 06-26-2023 Hematocrit (Bld) [Volume fraction] 46.2 % 40-54 [facility] - Chemistry and C hemistry - challengeOrdered By: Rohit Hamlin on 06-26-2023 ALP [Catalytic activity/Vol] 74 U/L 45-117 [facility] ALT [Catalytic activity/Vol] 79 U/L 16-61 [facility] CO2 [Moles/Vol] 29.0 mmol/L 21.0-32.0 [facility] Globulin (S) [Mass/Vol] 3.8 g/dL 2.2-4.2 [facility] Urea nitrogen/Creatinine [Mass ratio] 15.9 mg/mg 10-20 [facility] - Hematology and Cell countsOrdered By: Rohit Hamlin on 06-26-2023 Erythrocyte distribution width (RBC) [Entitic vol] 36.7 fL 35.1-43.9 [facility] Erythrocyte distribution width (RBC) [Ratio] 11.5 % 11.6-14.6 [facility] Immature granulocytes/100 WBC (Bld) 0.800 % 0.0-0.9 [facility] Comment on above: IG% - Immature Granu locytes (promyelocytes, myelocytes and metamyelocytes) > 1% indicates that a LEFT SHIFT is Present. MCH (RBC) [Entitic mass] 31.3 pg 27.0-32.0 [facility] Nucleated RBC/100 WBC (Bld) [Ratio] 0 % 0-5 [facility] MCHC Auto (RBC) [Mass/Vol]Or dered By: Rohit Hamlin on 06-26-2023 MCHC (RBC) [Mass/Vol] 35.3 g/dL 32-36 [facility] No Panel InformationOrdered By: Rohit Hamlin on 06-26-2023 Estimated GFR (MDRD) Amer 112 mL/min >60 [facility] Comment on above: GFR Calc Estimated GFR (MDRD) Non-Af Amer 93 mL/min >60 [facility] Comment on above: Non- GFR Calc Platelets bldOrdered By: Ian Hamlin on 06-26-2023 Platelets (Bld) [#/Vol] 369 10*3/uL 150-450 [facility] Serum or plasma albumin lois urement (mass/volume)Ordered By: Rohit Boubacar on 06-26-2023 Albumin [Mass/Vol] 4.1 g/dL 3.2-5.0 [facility] Serum or plasma albumin/glob ulin mass ratioOrdered By: Rohit Boubacar on 06-26-2023 Albumin/Globulin [Mass ratio] 1.1 {ratio} 0.9-2.4 [facility] Serum or plasma calcium lois urement (mass/volume)Ordered By: Rohit Boubacar on 06-26-2023 Calcium [Mass/Vol] 9.0 mg/dL 8.5-10.1 [facility] Serum or plasma creatinine m easurement (mass/volume)Ordered By: Rohit Boubacar on 06-26-2023 Creatinine [Mass/Vol] 0.94 mg/dL 0.70-1.30 [facility] Comment on above: The validity of the calculated GFR & GFRAA in patients over 70 years has not been determined. Clinical correlation is essential. Serum or plasma severe acute respiratory syndrome coronavirus 2 (SARS-CoV-2) IgG antiOrdered By: Rohit Boubacar on 06-26-2023 SARS-CoV-2 (COVID-19) IgG IA Ql See comment [facility] Comment on above: TEST RESULTS LIMITSS ARS-CoV-2 Antibody, [id number] Semi-Quant IgG Rakan, >800.0 AU/mL Neg <13.0SARS-CoV-2 Romel Ab Interp A, PositiveAntibodies against the SARS-CoV-2 spike protein, including the receptor binding domain (RBD) were detected. It is not yet known what level of antibody to SARS-CoV-2 spike protein correlates to immunity against developing symptomatic SARS-CoV-2 disease.This assay was performed using [employer](R) SARS-CoV-2 Trimeric S IgG assay.CommentsA: This test has not been FDA cleared or approved. This test has been authorized by FDA under an Emergency Use Authorization (EUA). This test is onlyauthorized for the duration of the declaration that circumstances exist justifying the authorization of emergency use of in vitro diagnostics for detectionand/or diagnosis of COVID-19 under Section 564(b)(1) of the Act, 21 U.S.C. 360bbb-3(b)(1), unless the authorization is terminated or revoked sooner. This test has been authorized only for detecting the presence of antibodies against SARS-CoV-2, not for any other viruses or pathogens. TESTING PERFORMED AT [facility]. ORIGINAL REPORT ON FILE IN LAB CONTAINS ADDITIONAL TEST SITE INFORMATION. Serum or plasma urea nitroge n measurement (mass/volume)Ordered By: Rohit Hamlin on 06-26-2023 Urea nitrogen [Mass/Vol] 15 mg/dL 7-18 [facility] Thin prep Papanicolaou smear with manual screeningOrdered By: Rohit Hamlin on 06-26-2023 Thin prep Papanicolaou smear with manual screening 24 U/L 15-37 [facility] Thin prep Papanicolaou smear with manual screening 8 5-15 [facility] HIV 1 and HIV-2 antibody ass ay with HIV-1 p24 antigen detectionon 05-01-2022 HIV 1+2 Ab+HIV1 p24 Ag IA Ql Non-Reactive Nonreactive [facility] Work Phone: No Panel Informationon 05-01 Hepatitis B Surface Antigen Non-Reactive Nonreactive [facility] Work Phone: Hepatitis C Antibody Non-Reactive Nonreactive [facility] Work Phone: Comment on above: Non Reactive: < 0.8 Equivocal: >/= 0.8 to < 1.0 Reactive: >/= 1.0The CDC recommends that a reactive/equivocal HCV antibody result be followed up by the HCV Nucleic Acid Amplificationtest (881638) Serum hepatitis B virus surf nitin antibody IgG detectionon 05-01-2022 HBV surface IgG Ql (S) Reactive [facility] Work Phone: Comment on above: Non Reactive: Incons istent with immunity less than <10 mIU/mL Reactive: Consistent with immunity greater than or equal to 10 mIU/mL Vital Signs Date Time Vital Sign Value Performing Clinician Faci lity 08-09-2023 12:51-0500 Body height 182.[address] Arelis Sweet Work Phone: [facility] 08-09-2023 12:51-0500 Body mass index (BMI) [Ratio] 31.8 kg/m2 Dr. Arelis Sweet Work Phone: [facility] 08-09-2023 12:51-0500 Body temperature 97.1 [degF] Dr. Arelis Sweet Work Phone: [facility] 08-09-2023 12:51-0500 Body weight 106.[address] Arelis Sweet Work Phone: [facility] 08-09-2023 12:51-0500 Diastolic blood pressure 72 mm[Hg] Dr. Arelis Sweet Work Phone: [facility] 08-09-2023 12:51-0500 Heart rate 62 /min Dr. Arelis Sweet Work Phone: [facility] 08-09-2023 12:51-0500 Respiratory rate 16 /min Dr. Arelis Sweet Work Phone: [facility] 08-09-2023 12:51-0500 SaO2% (BldA) [Mass fraction] 96 % Dr. Arelis Sweet Work Phone: [facility] 08-09-2023 12:51-0500 Systolic blood pressure 118 mm[Hg] Dr. Arelis Sweet Work Phone: [facility] 05-01-2022 11:10-0400 Diastolic blood pressure 77 mm[Hg] [facility] Work Phone: 05-01-2022 11:10-0400 Heart rate 76 /min [facility] Work Phone: 05-01-2022 11:10-0400 Respiratory rate 15 /min [facility] Work Phone: 05-01-2022 11:10-0400 SaO2% (BldA) [Mass fraction] 98 % [facility] Work Phone: 05-01-2022 11:10-0400 Systolic blood pressure 134 mm[Hg] [facility] Work Phone: 05-01-2022 10:23-0400 Body height 182.88 cm [facility] Work Phone: 05-01-2022 10:23-0400 Body mass index (BMI) [Ratio] 31.1 kg/m2 [facility] Work Phone: 05-01-2022 10:23-0400 Body temperature 97.6 [degF] [facility] Work Phone: 05-01-2022 10:23-0400 Body weight 104.32 kg [facility] Work Phone: Encounters Encounter Date Encounter Type Care Provider Facility Start: 06-14-2025 End: 06-14-2025 ambulatory Zuleima Looney Facility:[facility] Start: 05-20-2025 End: 05-20-2025 ambulatory Annie Miller Facility:[facility] Start: 04-12-2025 ambulatory Arelis Sweet Facility :[facility] Start: 03-15-2025 ambulatory Arelis Sweet Facility :[facility] Start: 03-01-2025 End: 03-01-2025 ambulatory Arelis Sweet Facility:[facility] Start: 02-02-2025 End: 02-02-2025 ambulatory Arelis Sweet Facility:[facility] Start: 11-30-2024 End: 11-30-2024 ambulatory Arelis Sweet Facility:[facility] Start: 11-16-2024 End: 11-16-2024 ambulatory Zuleima Looney Facility:[facility] Start: 09-14-2024 ambulatory Joy CEDILLO Facility[place] Start: 09-14-2024 End: 09-14-2024 ambulatory Joy Fontanez PA Facility:[facility] Start: 09-10-2024 End: 09-10-2024 ambulatory Anand CEDILLO Facility:[facility] Start: 08-09-2023 Non-patient / Non-visit Dr. Arelis Sweet Work Phone: [facility] Start: 08-09-2023 End: 08-09-[address] Arelis Sweet Work Phone: [facility] Work Phone: Start: 08-09-2023 End: 08-09-[address] Arelis Sweet Work Phone: [facility] Work Phone: Start: 08-09-2023 End: 08-09-[address] Arelis Sweet Work Phone: [facility] Medicine Work Phone: Start: 07-05-2023 Non-patient / Non-visit Dr. Arelis Sweet Work Phone: [facility] Work Phone: Start: 07-04-2023 End: 07-04-[address] Arelis Sweet Work Phone: [facility] Work Phone: Start: 07-04-2023 End: 07-04-[address] Arelis Sweet Work Phone: [facility] Radiology Start: 06-26-2023 End: 06-26-[address] Arelis Sweet Work Phone: [facility] Start: 10-17-2022 End: 10-17-[address] Arelis Sweet Work Phone: [facility] Work Phone: Start: 10-17-2022 End: 10-17-[address] [facility] Start: 10-11-2022 End: 10-11-[address] Arelis Sweet Work Phone: [facility] Work Phone: Start: 10-11-2022 End: 10-11-[address] Arelis Sweet Work Phone: [facility] Start: 10-08-2022 End: 10-08-[address] Arelis Sweet Work Phone: [facility] Work Phone: Start: 10-08-2022 End: 10-08-[address] Arelis Sweet Work Phone: [facility] Start: 08-31-2022 End: 08-31-[address] Arelis Sweet Work Phone: [facility] G[facility] Start: 05-01-2022 End: 05-01-2022 Emergency department patient visit [facility] Procedures Date Procedure Procedure Detail Performing Clinician Start: 07-04-2023 Plain chest X-ray Dr. Ricardo Sweet Work Phone: Start: 10-17-[address] Arelis Sweet Work Phone: Start: 10-11-2022 [address] gastric emptying study Dr. Arelis Sweet Work Phone: Start: 10-08-2022 Radionuclide imaging of liver and/or biliary tract using radioactive isotope Dr. Arelis Sweet Work Phone: Plan of Treatment Date Care Activity Detail Author Start: 05-01-2022 Hepatitis B surface antigen measurement [facility] Work Phone: Start: 05-01-2022 Hepatitis C antibody measurement [facility] Work Phone: C reactive protein [Mass/volume] in Serum or Plasma [facility] CBC W Auto Different ial panel - Blood [facility] Ceruloplasmin [Mass/ volume] in Serum or Plasma [facility] Erythrocyte sediment ation rate [facility] Hepatitis B surface antigen measurement [facility] Work Phone: Hepatitis B virus ascencio rface IgG Ab [Presence] in Serum [facility] Work Phone: Hepatitis C antibody measurement [facility] Work Phone: HIV 1+2 Ab+HIV1 p24 Ag [Presence] in Serum or Plasma by Immunoassay [facility] Work Phone: IgA [Mass/volume] in Serum or Plasma [facility] Patient Education ED NEEDLE STIC K Health Care Worker [facility] Work Phone: Patient referral [facility] Work Phone: Serum immunofixation [facility] US Abdomen [facility] Immunizations Immunization Date Immunization Notes Care Provider Naty shipman 07-05-2023 influenza, injectabl e, quadrivalent, preservative free Dr. Arelis Sweet Work Phone: [facility] 06-07-2022 influenza, injectabl e, quadrivalent, preservative free Dr. Arelis Sweet Work Phone: [facility] 06-07-2022 influenza, seasonal, injectable [facility] 05-01-2022 tetanus toxoid, redu roshan diphtheria toxoid, and acellular pertussis vaccine, adsorbed [facility] 05-02-2021 influenza, injectabl e, quadrivalent, preservative free Dr. Arelis Sweet Work Phone: [facility] 05-02-2021 influenza, seasonal, injectable [facility] 09-07-2020 Covid (Moderna) [facility] 08-10-2020 Covid (Moderna) [facility] 05-23-2020 influenza, injectabl e, quadrivalent, preservative free Dr. Arelis Sweet Work Phone: [facility] 05-23-2020 influenza, seasonal, injectable [facility] 06-17-2019 influenza, injectabl e, quadrivalent, preservative free Dr. Arelis Sweet Work Phone: [facility] 06-17-2019 influenza, seasonal, injectable [facility] 07-03-2018 influenza, injectabl e, quadrivalent, preservative free Dr. Arelis Sweet Work Phone: [facility] 07-03-2018 influenza, seasonal, injectable [facility] Payers Date Payer Category Payer Self-pay [id number] 2024 Unknown [id number] 2024 Unknown [id number] Private Health Insurance [id number] Unknown [id number] 2.16.8 [id number] Unknown [id number] 2.16.8 [id number] Unknown [id number] 2.16.8 [id number] Unknown [id number] 2.16.8 [id number] Unknown [id number] 2.16.8 [id number] Unknown [id number] 2.16.8 [id number] Unknown [id number] 2.16.8 [id number] Unknown [id number] 2.16.8 [id number] Unknown [id number] 2.16.8 [id number] Unknown [id number] 2.16.8 [id number] Unknown [id number] 2.16.8 [id number] Unknown [id number] 2.16.8 [id number] Social History Date Type Detail Facility Start: 05-01-2022 End: 08-09-2023 Tobacco smoking status AZIS Unknown if ever smoked [facility] Start: 08-23-2020 Non-smoker [facility] Start: 1980 Sex Assigned At Male [facility] Evaluation note Note Date & Type Note Facility Evaluation note No assessment information availa ble [facility] Work Phone: Evaluation note Note Date & Type Note Facility Evaluation note Diagnosis Onset Date Bloating acute Transaminitis acute [facility] Work Phone: Evaluation note Note Date & Type Note Facility Evaluation note Diagnosis Onset Date Need for influenza vaccination acute Pain of left calf acute [facility] Work Phone: Hospital Discharge instructions Note Date & Type Note Facility Hospital Discharge instructions Additional Instructions Follow-up with occupational health. [facility] Work Phone: Chief Complaint and Reason for Visit Chief Complaint exposure Chief Complaint FU BLOATING, TRANSAMINITIS BLOATING, TRANSAMINITIS Reason for Visit Bloating Transaminitis Chief Complaint FU BLOATING, TRANSAMINITIS BLOATING, TRANSAMINITIS HEPATOMEGALY, BLOATING, TRANSAMINITIS Reason for Visit Bloating Transaminitis Chief Complaint XRAY FLU SHOT Amb Documentation chk up LT CALF PAIN Reason for Visit Need for influenza v accination Pain of left calf Advance Directives No Advanced Directives Records Found Advance Directive Response Recorded Date/ Time Living Will No May 01, 2022 10:30am Power of Field Advisor No April 10:30am Advance Directive Response Recorded Date/ Time Living Will No May 01, 2022 9:30am Power of Field Advisor No April 9:30am Advance Directive Response Recorded Date/ Time Living Will No July 04, 2 023 12:04pm Power of Field Advisor No July 04, 2023 12:04pm Summary Purpose Family History No Family History Records Found Additional Source Comments Goals (unrecognized section and content) Goals may be documented in a n alternate sectionGoals may be documented in an alternate sectionGoals may be documented in an alternate sectionGoals may be documented in an alternate sectionGoals may be documented in an alternate sectionGoals may be documented in an alternate section Care Teams (unrecognized sec tion and content) Team Status: Active Member Role Status Dates Dr. Arelis Sweet MD Primary Care Provider Active Team Status: Inactive Member Role Status Dates Dr. Arelis Sweet MD Primary Care Provider, Referri ng Provider Active Dr. Ken Zavala DO Attending Provider Active Team Status: Inactive Member Role Status Dates Dr. Arelis Sweet MD Primary Care Provider Active Dr. Ken Zavala DO Attending Provider, Referring Provider Active Team Status: Active Member Role Status Dates Dr. Arelis Sweet MD Primary Care Provider Active Dr. Ken Zavala DO Attending Provider Active Team Status: Inactive Member Role Status Dates Dr. Arelis Sweet MD Primary Care Provider Active Dr. Ken Zavala DO Attending Provider Active Team Status: Inactive Member Role Status Dates Dr. Arelis Sweet MD Primary Care Provider Active Dr. Seth Hunter MD Attending Provider Active Team Status: Inactive Member Role Status Dates Dr. Arelis Sweet MD Primary Care Pro vider, Attending Provider, Referring Provider Active Team Status: Active Member Role Status Dates Dr. Arelis Sweet MD Primary Care Provider Active Debra العلي MA Attending Provider Active Team Status: Inactive Member Role Status Dates Dr. Arelis Sweet MD Primary Care Provider, Referri ng Provider Active Dr. Bereket Escobar MD Attending Provider Active Team Status: Active Member Role Status Dates Dr. Arelis Sweet MD Primary Care Provider Active Dr. Errol Shell MD Attending Provider Active Dr. Bereket Escobar MD Referring Provider Active Team Status: Inactive Member Role Status Dates Dr. Arelis Sweet MD Primary Care Provider Active Dr. Rohit Hamlin DO Attending Provider, Referring Provider Active Team Status: Inactive Member Role Status Dates Dr. Arelis Sweet MD Primary Care Provider Active Dr. Bereket Escobar MD Attending Provider, Karsten frazier Provider Active (unrecognized sect ion and content) No Status Records Found INFORMATION SOURCE (unrecogn ized section and content) DATE CREATED AUTHOR 06/15/2025 [facility] FOR RECORDS PERTAINING TO PATIENTS WHO ARE OR HAVE BEEN ENROLLED IN A CHEMICAL DEPENDENCY/SUBSTANCEABUSE PROGRAM, SOME INFORMATION MAY BE OMITTED. This clinical summary was aggregated from multiple sources. Caution should be exercised in using it in the provision of clinical care. This summary normalizes information from multiple sources, and as a consequence, information in this document may materially change the coding, format and clinical context of patient data. In addition, data may be omitted in some cases. CLINICAL DECISIONS SHOULD BE BASED ON THE PRIMARY CLINICAL RECORDS. [employer] [facility] provides no warranty or guarantee of the accuracy or completeness of information in this document.
--- NOTE | 2025-07-26 07:54 | US_ITS ---
PROCEDURE: GALLBLADDER 07/26/2025 REASON FOR EXAM: RUQ PAIN TECHNIQUE: Procedure Code: USGB Modality: US Procedure: GALLBLADDER FINDINGS: GALLBLADDER: No gallstones. no gallbladder wall thickening or pericholecystic fluid. Negative Damon sign. COMMON BILE DUCT: Measures 5 mm. No intrahepatic biliary dilatation. LIVER: Hepatomegaly to 18.7 cm. Normal echogenicity. No definite hepatic mass. RIGHT KIDNEY: Normal in size and echogenicity. No mass. No urinary stones. No hydronephrosis. Pancreas: Visualized portions are within normal limits. US/Gallbladder IMPRESSION: No acute cholecystitis. Hepatomegaly. Reading Location: [id number]
[2025-07-26 08:25] LABS: Hematocrit 45.2 % (40-54); Hemoglobin 16.0 g/dL (13.0-16.5); Immature Granulocytes Count 0.020 X10^3/uL (0.0-0.0); Mean Corp Hgb Conc 35.4 g/dL (32-36); Mean Corpuscular Volume 89.3 fL (80-94); Mean Platelet Vol. 9.1 fl (6.2-12.0); NRBC Flagged by Analyzer 0 % (0-5); Platelet Count 282 K/mm3 (150-450); RBC Distribution Width CV 11.3 % (11.6-14.6); RBC Distribution Width SD 36.2 fl (35.1-43.9); Red Blood Count 5.06 M/mm3 (4.6-6.2); White Blood Count 5.5 K/mm3 (4.4-11.0)
[2025-07-26 09:55] LABS: AST(SGOT) 29 U/L (<=37); Alanine Aminotransfer ALT/SGPT 55 U/L (<=46); Albumin, Serum 4.6 g/dL (3.5-5.0); Alkaline Phosphatase 59 U/L (40-129); Anion Gap 11 (5-15); BUN 12 mg/dL (4-19); BUN/Creat Ratio 12.2 RATIO (10-20); Calcium,Total 9.6 mg/dL (7.6-11.0); Carbon Dioxide 27.4 mmol/L (21.0-32.0); Chloride 103 mmol/L (98-108); Cholesterol 215 mg/dL (<=200); Globulin 2.7 g/dL (2.2-4.2); Glucose 97 mg/dL (70-99); Low Density Lipoprotein Calc. 134 mg/dL; PSA,Total - Annual Screen 0.65 ng/mL (0.02-4.00); Potassium 4.1 mmol/L (3.3-5.1); Triglycerides 190 mg/dL; Very Low Density Lipoprotein 38 mg/dL (5-40); cholesterol:hdl ratio screen 4.59
== END | disposition home or self-care (01) ==
PROVIDERS: Referring Provider Family Medicine; Visit Provider Family Medicine
DX: Z00.00 Encounter for general adult medical examination without abnormal findings (principal); Q44.1 Other congenital malformations of gallbladder
CPT/HCPCS: 36415; 76705; 80053; 80061; 84153; 85025; G0103